=== PATIENT | male | born 1945 | race Caucasian/White ===

== ENCOUNTER 2023-09-24 17:24 | Emergency (ER) | payer MEDICARE, SELFPAY ==
[2023-09-24] VITALS (9 sets, daily range): BP systolic 139–190; BP diastolic 67–137
--- NOTE | 2023-09-24 18:20 | ED.GENMED ---
History of Present Illness
General
Chief Complaint: Heart Rate Problem
Source: patient
Exam Limitations: none
Time Seen by Provider: 09/24/23 18:03
Travel History
Have you had any contact with someone who has COVID-19?: No
Do you have any symptoms of coronavirus? Fever > 100 degrees, chills, cough, shortness of breath, sore throat, loss of taste or smell, muscle aches, or headache?: No
History of Present Illness
History of Present Illness:
This is a 78 year old male that comes in with c/o irregular heart beat. States that he went to [facility] to get pre-op clearance for Cataract surgery next month. States that they found that his heart rate was irregular and they told him to come
to the ER. Patients girlfriend states that he is to be on Amlodipine but he has not taken this for a long time. States that he was given this from [facility]. Denies any fever, chills, chest pain, SOB, abd pain, nausea, vomiting, diarrhea,
headache, dizziness, urinary burning.
Past History
Past History
ED Past Medical History: None; Negative Asthma, HTN, Hypercholesterolemia, IDDM or NIDDM
ED Past Surgical History: None
Social History
Tobacco: Non-smoker
Alcohol: None
Personal: Other (Seperated)
Living: with family
Review of Systems
Review of Systems
All Other Systems: ROS reviewed and negative except as documented in HPI and ROS
Constitutional: Reports no symptoms; Denies fever or chills
EENT: Reports no symptoms
Respiratory: Reports no symptoms; Denies cough or trouble breathing
Cardiac: Reports other (Irregular heart beat); Denies chest pain
ABD/GI: Reports no symptoms; Denies abdominal pain, nausea, vomiting or diarrhea
: Reports urgency; Denies dysuria or frequency
Musculoskeletal: Reports no symptoms
Skin: Reports no symptoms
Neurological: Reports no symptoms; Denies dizzy or headache
Psychiatric: Reports no symptoms
Phy Exam
General Physical Exam
General Presentation: no apparent distress
General age: appears stated age
General Skin: warm and dry
General Habitus: elderly
General Mental: alert
General Hydration: appears well hydrated
ENT Exam
ENT Exam: TM's normal, pharynx normal and neck supple
Eye Exam
Eye Exam: EOMI
Cardiovascular Exam
Cardiovascular Exam: no edema, normal peripheral pulses and irregularly irregular (PVC's)
Pulmonary Exam
Pulmonary Exam: lungs clear, no respiratory distress, no rales, chest non tender, no crackles, no rhonchi, no wheezing and no cough
Gastrointestinal Exam
Gastrointestinal Exam: normal bowel sounds, non tender, soft, no organomegaly, no pulsatile mass and non distended
Musculoskeletal Exam
Musculoskeletal Exam: full ROM and no edema
Skin Exam
Skin Exam: normal color, warm/dry, no rash and no petechia
Psychiatric Exam
Psychiatric Exam: normal mood/affect
Course
Orders/Labs/Results
Orders:
Orders
09/24/23 17:30
Electrocardiogram (*1) Urgent
Reason for Study: Atrial Fibrillation
EKG- Treatment ONCE
09/24/23 17:55
Complete Blood Count/With Diff Urgent
Comprehensive Metabolic Panel Urgent
TSH Reflex To Free T4 Urgent
09/24/23 18:19
HydrALAZINE [Apresoline] 5 mg IV NOW STA
09/24/23 20:13
Metoprolol Xl [Toprol Xl] 25 mg PO NOW STA
Abnormal Lab Results
09/24/23
17:55
RBC 4.54 L 10^6/uL
(4.70-6.10)
MCH 31.9 H pg
(27.0-31.0)
BUN 28 H mg/dl
(9-20)
Glucose 103 H mg/dl
(70-99)
09/24/23 17:55
09/24/23 17:55
Dehydration. Glucose nonfasting. TSH normal at 1.26
Vital Signs
Initial and Last Documented VS:
Initial Vital Signs
Temp Pulse Resp BP Pulse Ox
98.3 F 71 18 190/137 95
09/24/23 17:29 09/24/23 17:29 09/24/23 17:29 09/24/23 17:29 09/24/23 17:29
Last Documented Vital Signs
Temp Pulse Resp BP Pulse Ox
98.3 F 61 19 139/67 98
09/24/23 17:29 09/24/23 19:15 09/24/23 19:15 09/24/23 19:00 09/24/23 19:15
MDM/Problems Addressed
Differential Diagnosis Includes:
PVC's, PAC's,
MDM/Problems Addressed:
This is a 78 year old male that comes in from [facility] with c/o irregular heart beat. States that he went there for Pro-op clearance and they found that his heart was irregular. States that they told him he was in atrial fib.
Will check labs and medicate for his hypertension. Explained to patient that he is not in Atrial fib but is having PVC's. Patient states that he drinks a big mug of coffee daily. Explained that this is a stimulant and can cause this extra beats to
happen more frequently.
Spoke with the Appellate Court Clerk. Will place patient on Metroprolol 25mg daily. Patient to follow up with the Appellate Court Clerk in the office for further evaluation. Patient to return with any chest pain, or any other conerns.
Chronic conditions affecting care:
NA
Acute Exacerbation and/or Progression of Chronic Illness:
NA
*Pulse Oximetry
Patient hypoxic: no
*EKG
Interpreted by ED Provider?: Yes
Heart Rate: 70
Rate: normal
Rhythm: PVC's and sinus arrhythmia
[place]: left axis deviation
QRS Pattern: normal QRS
Ischemia: no ischemia (Checked by Dr. Horn)
*[place]er Interpretation
Rate: normal
Heart Rate: 75
Rhythm: sinus and PVC's
*Critical Care Note
Total Time (30-74mins, 75-104mins- exclusive of procedures): Not Applicable
ED Attending Note
-
Portions of this chart may have been created with voice recognition software.� Occasional wrong word or��sound alike� substitutions may have occurred due to the inherent limitations of voice recognition software.
Discharge Plan
Departure
Patient Disposition: Home (Routine Discharge)
Date of Disposition: 09/24/23
Time of Disposition: 20:40
Patient with high blood pressure during this ER visit?: Yes
Condition: Good
Covid-19: Not Applicable
Discharge Problem:
Multifocal PVCs, PAC (premature atrial contraction), Irregular heart beat
Instructions: Palpitations (DC), BLOOD PRESSURE
Prescriptions:
New
metoprolol succinate 25 mg tablet extended release 24 hr
25 mg PO DAILY Qty: 30 0RF
Referrals:
Chavo Martin MD [Active] - Follow up in 2-3 days
Activity Restrictions/Additional Instructions:
As discussed, your blood work shows dehydration. You have been given IV fluids here. Please try and decrease your caffeine intake as this will cause you to have increased PVC's. Please follow up with the Appellate Court Clerk in the office in the next few
days. You have been given a prescription for Metoprolol 25mg daily. This will help with BP control and to help with the extra beats. Please increase your water intake to 8-8oz glasses daily. IF YOU HAVE ANY CHEST PAIN, OR YOU HAVE ANY OTHER CONCERNS
PLEASE RETURN TO THE EMERGENCY ROOM.
Interventions
Interventions:
*Risk Screen - Suicide Last Done: 09/24/23 17:26
*General Assessment Last Done: 09/24/23 17:26
*Neglect/Abuse Screening Last Done: 09/24/23 17:26
ED- Fall Risk Assessment Last Done: 09/24/23 18:08
*ED COVID-19 Vaccine History Last Done: 09/24/23 17:26
ED- Cardiac Assessment Last Done: 09/24/23 18:08
ED- Pulmonary Assessment Last Done: 09/24/23 18:08
[2023-09-24 18:27] LABS: % Basophils 1.1 % (0-2); % Eosinophils 1.4 % (0-6); % Immature Granulocytes 0.2 % (0-0.5); % Lymphocytes 25.2 % (20.5-51.1); % Neutrophils 63.1 % (42.2-75.2); Absolute Basophils 0.1 10^3/uL (0-0.2); Absolute Eosinophils 0.1 10^3/uL (0-0.7); Absolute Lymphocytes 1.4 10^3/uL (1.2-3.4); Absolute Monocytes 0.5 10^3/uL (0.1-0.6); Absolute Neutrophils 3.6 10^3/uL (1.4-6.5); Hematocrit 40.8 % (39.0-52.0); Hemoglobin 14.5 g/dL (13.0-18.0); Mean Corp Hgb Conc. 35.5 g/dL (33.0-37.0); Mean Corpuscular Hgb 31.9 pg (27.0-31.0); Mean Corpuscular Volume 89.9 fL (80.0-94.0); Mean Platelet Volume 9.7 fL (7.4-10.4); Nucleated Red Blood Cells % 0 % (-); Platelet Count 206 10^3/uL (130-400); Red Blood Cell Count 4.54 10^6/uL (4.70-6.10); Red Cell Dist. Width 12.2 % (11.5-14.5); White Blood Cell Count 5.7 10^3/uL (4.8-10.8)
[2023-09-24] MEDS: APRESOLINE 5 MG IV (18:28)
[2023-09-24 18:37] LABS: ALT (SGPT) 22 U/L (0-50); AST (SGOT) 27 U/L (17-59); Albumin 4.1 g/dl (3.5-5.0); Alkaline Phosphatase 69 U/L (38-126); Blood Urea Nitrogen 28 mg/dl (9-20); Calcium 9.8 mg/dl (8.4-10.2); Carbon Dioxide 24 mmol/L (22-30); Chloride 105 mmol/L (98-107); Glucose 103 mg/dl (70-99); Potassium 4.2 mmol/L (3.5-5.1); Sodium 138 mmol/L (135-145); Total Bilirubin 0.7 mg/dl (0.2-1.3); Total Protein 6.7 g/dl (6.3-8.2); eGFR > 60.00
[2023-09-24 19:07] LABS: TSH Reflex To Free T4 1.26 uIU/ml (0.47-4.68)
[2023-09-24] MEDS: TOPROL XL 25 MG PO (20:35)
== END 2023-09-24 21:09 | disposition home or self-care (01) ==
LOC: EMR 17:24
PROVIDERS: EMERGENCY PHYSICIAN Emergency Medicine
DX: I49.3 Ventricular premature depolarization (principal); I49.1 Atrial premature depolarization; I49.9 Cardiac arrhythmia, unspecified; R03.0 Elevated blood-pressure reading, without diagnosis of hypertension
CPT/HCPCS: 99284; 96374; 80053; 84443; 85025; 93005

== ENCOUNTER → 2023-10-07 15:10 | Outpatient (REF) | payer MEDICARE, SELFPAY | LOC: HWRAD 15:10 | PROVIDERS: ATTENDING PHYSICIAN Internal Medicine Cardiovascular Disease; FAMILY PHYSICIAN Family Medicine | DX: F80.9 Developmental disorder of speech and language, unspecified (principal) | CPT/HCPCS: 70450 ==

== ENCOUNTER → 2023-10-09 12:30 | Outpatient (REF) | payer MEDICARE, SELFPAY | LOC: RCS 12:30 | PROVIDERS: ATTENDING PHYSICIAN Internal Medicine Cardiovascular Disease | DX: I49.3 Ventricular premature depolarization (principal); I10 Essential (primary) hypertension | CPT/HCPCS: 93306 ==

== ENCOUNTER → 2023-10-15 11:02 | Outpatient (REF) | payer MEDICARE, SELFPAY | LOC: DHCBC/DCA 11:02 | PROVIDERS: ATTENDING PHYSICIAN Internal Medicine Cardiovascular Disease | DX: I49.3 Ventricular premature depolarization (principal); R94.31 Abnormal electrocardiogram [ECG] [EKG] | CPT/HCPCS: 78452; 93017; A9500 ==

== ENCOUNTER → 2023-11-24 12:49 | Outpatient (REF) | payer MEDICARE, SELFPAY ==
[2023-11-24 14:09] LABS: % Basophils 1.3 % (0-2); % Eosinophils 1.6 % (0-6); % Immature Granulocytes 0.3 % (0-0.5); % Lymphocytes 24.8 % (20.5-51.1); % Monocytes 6.9 % (1.7-9.3); % Neutrophils 65.1 % (42.2-75.2); Absolute Basophils 0.1 10^3/uL (0-0.2); Absolute Eosinophils 0.1 10^3/uL (0-0.7); Absolute Lymphocytes 1.6 10^3/uL (1.2-3.4); Absolute Monocytes 0.4 10^3/uL (0.1-0.6); Absolute Neutrophils 4.1 10^3/uL (1.4-6.5); Hematocrit 41.8 % (39.0-52.0); Hemoglobin 14.4 g/dL (13.0-18.0); Mean Corp Hgb Conc. 34.4 g/dL (33.0-37.0); Mean Corpuscular Hgb 32.1 pg (27.0-31.0); Mean Corpuscular Volume 93.3 fL (80.0-94.0); Mean Platelet Volume 9.9 fL (7.4-10.4); Nucleated Red Blood Cells % 0 % (-); Platelet Count 215 10^3/uL (130-400); Red Blood Cell Count 4.48 10^6/uL (4.70-6.10); Red Cell Dist. Width 12.6 % (11.5-14.5); White Blood Cell Count 6.3 10^3/uL (4.8-10.8)
[2023-11-24 14:39] LABS: ALT (SGPT) 18 U/L (0-50); AST (SGOT) 26 U/L (17-59); Albumin 4.6 g/dl (3.5-5.0); Alkaline Phosphatase 68 U/L (38-126); Blood Urea Nitrogen 26 mg/dl (9-20); Calcium 10.2 mg/dl (8.4-10.2); Carbon Dioxide 24 mmol/L (22-30); Chloride 106 mmol/L (98-107); Glucose 90 mg/dl (70-99); HDL Cholesterol 74 mg/dl; LDL Cholesterol, Calculated 121 mg/dl; Potassium 4.5 mmol/L (3.5-5.1); Sodium 137 mmol/L (135-145); Total Bilirubin 0.7 mg/dl (0.2-1.3); Total Cholesterol 211 mg/dl (50-199); Total Protein 7.2 g/dl (6.3-8.2); Triglyceride 82 mg/dl (10-149); Very Low Density Lipoprotein 16 mg/dl (0-30); eGFR > 60.00
[2023-11-24 14:55] LABS: Vitamin D, 25-OH*** 55.1 ng/mL (30-80)
[2023-11-24 15:10] LABS: PSA, Total - Screen 7.45 ng/ml (0.0-4.0)
== END ==
LOC: RAD 12:49
PROVIDERS: ATTENDING PHYSICIAN Internal Medicine Cardiovascular Disease; FAMILY PHYSICIAN Family Medicine
DX: R09.89 Other specified symptoms and signs involving the circulatory and respiratory systems (principal); Z00.00 Encounter for general adult medical examination without abnormal findings; Z79.899 Other long term (current) drug therapy; I49.3 Ventricular premature depolarization; Z12.5 Encounter for screening for malignant neoplasm of prostate
CPT/HCPCS: 36415; 76770; 80053; 80061; 82306; 84443; 85025; G0103

== ENCOUNTER 2024-04-20 19:12 | Emergency (ER) | payer MEDICARE, SELFPAY ==
[2024-04-20 19:21] VITALS: BP 130/92
[2024-04-20 19:50] LABS: % Basophils 0.4 % (0-2); % Immature Granulocytes 0.4 % (0-0.5); % Monocytes 4.6 % (1.7-9.3); % Neutrophils 89.6 % (42.2-75.2); Absolute Basophils 0.1 10^3/uL (0-0.2); Absolute Immature Granulocytes 0.1 10^3/uL (0-0.05); Absolute Lymphocytes 0.8 10^3/uL (1.2-3.4); Absolute Monocytes 0.7 10^3/uL (0.1-0.6); Absolute Neutrophils 13.5 10^3/uL (1.4-6.5); Hematocrit 40.7 % (39.0-52.0); Hemoglobin 14.8 g/dL (13.0-18.0); Mean Corp Hgb Conc. 36.4 g/dL (33.0-37.0); Mean Corpuscular Hgb 31.4 pg (27.0-31.0); Mean Corpuscular Volume 86.4 fL (80.0-94.0); Mean Platelet Volume 9.5 fL (7.4-10.4); Nucleated Red Blood Cells % 0 % (-); Platelet Count 219 10^3/uL (130-400); Red Blood Cell Count 4.71 10^6/uL (4.70-6.10); White Blood Cell Count 15.1 10^3/uL (4.8-10.8)
[2024-04-20 20:33] LABS: ALT (SGPT) 24 U/L (0-50); AST (SGOT) 28 U/L (17-59); Albumin 4.9 g/dl (3.5-5.0); Alkaline Phosphatase 85 U/L (38-126); Blood Urea Nitrogen 27 mg/dl (9-20); Calcium 9.9 mg/dl (8.4-10.2); Carbon Dioxide 16 mmol/L (22-30); Chloride 103 mmol/L (98-107); Glucose 182 mg/dl (70-99); Potassium 4.1 mmol/L (3.5-5.1); Sodium 139 mmol/L (135-145); Total Bilirubin 0.8 mg/dl (0.2-1.3); Total Protein 7.4 g/dl (6.3-8.2); eGFR 47.36
[2024-04-20 20:39] VITALS: BMI 27.6
[2024-04-20 20:43] LABS: Lipase 66 U/L (23-300)
[2024-04-20 21:00] VITALS: BP 158/90
--- NOTE | 2024-04-20 21:04 | ED.GENMED ---
History of Present Illness
General
Chief Complaint: Abdominal Pain
Source: patient
Exam Limitations: none
Time Seen by Provider: 04/20/24 20:38
Nursing documentation reviewed up to this point in time: agreed with
History of Present Illness
History of Present Illness:
Patient is a 70-year-old male with history hypertension presenting to the emergency department with acute onset right lower quadrant abdominal pain. Patient states that today around 1 PM he was sitting when he noticed pain in his right lower
abdomen Patient states the pain was sharp and severe, although intermittent. He denies any radiation of pain to his back or his groin. He also reports associated nausea and 1 episode of vomiting while he was at urgent care. Patient denies any
diarrhea or constipation. He denies any dysuria or hematuria. Patient denies any fever or chills.
Patient states that while he was waiting in the waiting with the emergency department pain was pretty severe. Although he does state that he just went to the bathroom and urinated and now seems that his pain has improved. He did not notice any
stone passage at that time.
Patient does have a history of kidney stones for which symptoms seemed similar.
Past History
Past History
ED Past Medical History: None; Negative Asthma, HTN, Hypercholesterolemia, IDDM or NIDDM
ED Past Surgical History: None
Social History
Tobacco: Non-smoker
Alcohol: None
Personal: Other (Seperated)
Living: with family
Review of Systems
Review of Systems
Allergies reviewed?: Yes
All Other Systems: ROS reviewed and negative except as documented in HPI and ROS
Phy Exam
Physical Exam
Physical Exam:
Vitals: Patient's vital signs are stable. Afebrile
General: Patient is well appearing, no acute distress. Nontoxic appearing
Skin: Warm and dry, no rashes or lesions
Head: Normocephalic, atraumatic
Eyes: Sclera nonicteric. EOMs intact. No nystagmus.
Throat: Protecting airway
Neck: Normal ROM, no cervical spine tenderness, no meningismus
Cardiac: Regular rate and rhythm, no murmurs.
Pulm: Normal respiratory effort, no wheezes, rales, rhonchi heard on exam.
Abdomen: Abdomen soft. Very mild abdominal tenderness in right mid abdomen without rebound tenderness or guarding. No CVA tenderness.
Extremities: No evidence of cyanosis or edema. Great distal pulses
Neuro: Grossly intact.
Psychiatric: Normal affect.
Course
Orders/Labs/Results
Orders:
Orders
04/20/24 19:42
Complete Blood Count/With Diff Urgent
Comprehensive Metabolic Panel Urgent
Lipase Urgent
04/20/24 21:02
0.9% Sodium Chloride 1000 ml [Nss] 1,000 ml IV BOLUS
04/20/24 21:12
Urinalysis Reflex To Culture Urgent
Date Specimen was Collected: 04/20/24
Time Specimen was Collected: 21:10
Urine Microscopic Reflex Cult Urgent
Urine Culture Urgent
LUZ Source: U
Specimen Description:
Date Specimen was Collected: 04/20/24
Time Specimen was Collected: 21:10
04/20/24 21:41
Abdomen/Pelvis wo Contrast CT [CT Abd/pelvis Wo Iv Cont] Urgent
Comment:
Reason For Exam: R lower abdominal pain, +hematuria
Abnormal Lab Results
04/20/24 04/20/24
19:42 21:12
WBC 15.1 H 10^3/uL
(4.8-10.8)
MCH 31.4 H pg
(27.0-31.0)
Abs Immat Gran (auto) 0.1 H 10^3/uL
(0-0.05)
Absolute Neuts (auto) 13.5 H 10^3/uL
(1.4-6.5)
Absolute Lymphs (auto) 0.8 L 10^3/uL
(1.2-3.4)
Absolute Monos (auto) 0.7 H 10^3/uL
(0.1-0.6)
Neutrophils % 89.6 H %
(42.2-75.2)
Lymphocytes % 5.0 L %
(20.5-51.1)
Carbon Dioxide 16 L mmol/L
(22-30)
BUN 27 H mg/dl
(9-20)
Creatinine 1.5 H mg/dL
(0.7-1.3)
Glucose 182 H mg/dl
(70-99)
Urine Ketones 2+ A
(Negative)
Ur Occult Blood Reflex 4+ A
(Negative)
Urine Nitrite (Reflex) Positive A
(Negative)
Urine Bilirubin 1+ A
(Negative)
Leukocyte Esterase Rfl 1+ A
(Negative)
Urine RBC >100 A /HPF
(0-2)
Urine WBC (Reflex) 11-15 A /HPF
(0-5)
Urine Bacteria (Reflex) Few A
(Negative)
Urine Glucose Trace A
(Negative)
Urine Albumin (Reflex) 3+ A
(Neg - Trace)
04/20/24 19:42
04/20/24 19:42
Vital Signs
Initial and Last Documented VS:
Initial Vital Signs
Temp Pulse Resp BP Pulse Ox
98.7 F 59 16 130/92 98
04/20/24 19:21 04/20/24 19:21 04/20/24 19:21 04/20/24 19:21 04/20/24 19:21
Last Documented Vital Signs
Temp Pulse Resp BP Pulse Ox
98.7 F 72 18 162/90 98
04/20/24 19:21 04/20/24 23:12 04/20/24 23:12 04/20/24 23:12 09/18/24 23:12
MDM/Problems Addressed
Differential Diagnosis Includes:
Not limited to: Kidney stone, UTI, pyelonephritis, appendicitis, muscle strain, zoster
MDM/Problems Addressed:
70-year-old male reporting with acute onset right lower abdominal pain which is since resolved by my evaluation. Remaining symptoms after urinating once being brought to emergency department room. Did have nausea and episode of vomiting earlier
today. No fever or chills or urinary symptoms. Mildly hypertensive, otherwise vital signs stable on arrival. Physical exam as above. By my evaluation�patient is a no distress abdomen soft. Mild. No rebound tenderness or guarding. No CVA
tenderness. Patient has no evidence of overlying rash on abdomen/back to suggest zoster. No overlying ecchymoses. Story somewhat consistent with possibly recently passed kidney stone. Labs were initiated in triage which do show a leukocytosis
of 15.1. Findings of mild renal insufficiency noted. Patient very well-appearing. Will give liter of IV fluids. Patient no longer in any discomfort�declines any analgesia at this time. Will check urine sample. Given high suspicion for recently
passed kidney stone�will obtain noncontrast CT abdomen/pelvis. Much lower suspicion for acute surgical abdomen including appendicitis, diverticulitis given benign abdominal exam.
Chronic conditions affecting care:
History of kidney stone, hypertension, hypertension
Acute Exacerbation and/or Progression of Chronic Illness:
Acutely hypertensive
*Radiology
Radiology exam reviewed: preliminary read by ED provider (Right perinephric stranding and hydronephrosis) and radiology read reviewed
*Pulse Oximetry
Patient hypoxic: no
*EKG
Interpreted by ED Provider?: NA
*Decontaminator Interpretation
Rate: Decontaminator- N/A
*Critical Care Note
Total Time (30-74mins, 75-104mins- exclusive of procedures): Not Applicable
Patient Management
Discussion with other providers: Machine Specialist (Urology - Dr. Goss)
Update Note
Update Note:
Update: Urine analysis results reviewed. Positive for blood. Also findings of possible infection considering positive for nitrate, 1+ leukocyte esterase, 11�15 WBC. Although�patient denies any urinary infectious symptoms at this time. Urine
culture will be sent. CT abdomen/pelvis reviewed. No obstructing calculi noted�although there are multiple stones noted within the urinary bladder. There are findings of right hydronephrosis and severe right perinephric edema suggesting likely
recently passed kidney stone. No other acute abnormalities noted. Did discuss case with urology� Dr. Goss. He recommends against antibiotics at this time given patient is asymptomatic and urine culture will be sent. Will hold on antibiotics.
Patient will be discharged with urology follow-up in 2-3 weeks. Prescription given for follow-up ultrasound renal/bladder to have performed prior to urology follow-up. Did advise patient to have lab work repeated with primary care in a week to
ensure renal function improving. Return precautions discussed especially regarding signs of worsening infection. Patient remains very well-appearing, in no apparent distress. He has remained asymptomatic since my initial evaluation�requiring no
pain management emergency department. Patient stable for discharge with urology/PCP follow-up
ED Attending Note
-
Portions of this chart may have been created with voice recognition software.� Occasional wrong word or��sound alike� substitutions may have occurred due to the inherent limitations of voice recognition software.
Discharge Plan
Departure
Patient Disposition: Home (Routine Discharge)
Date of Disposition: 04/20/24
Time of Disposition: 23:28
Patient with high blood pressure during this ER visit?: Yes
Condition: Good
Covid-19: Not Applicable
Discharge Problem:
Abdominal pain, RLQ, Hydronephrosis, right
Instructions: Kidney Stones (DC), BLOOD PRESSURE
Prescriptions:
No Action
metoprolol succinate 25 mg tablet extended release 24 hr
25 mg PO DAILY Qty: 30 0RF
Referrals:
Jeremiah Ashby DO [Family Provider] - Follow up in 1 week
Wil Goss MD [Active] - Follow up in 10 days (2-3 weeks)
Activity Restrictions/Additional Instructions:
RETURN TO THE EMERGENCY DEPARTMENT WITH ANY FEVERS, CHILLS, SEVERE ABDOMINAL PAIN, INTRACTABLE NAUSEA/VOMITING, SIGNS OF DEHYDRATION, SIGNIFICANT WEAKNESS/FATIGUE, OR ANY OTHER CONCERNS
-It is likely that you passed a kidney stone today.
-It does appear that your kidney function is slightly high on your lab work today. You should have these labs repeated in 1 week with your primary care doctor.
-As discussed�you should follow-up with a urologist in 2 to 3 weeks. The contact information for Dr. Goss has been given to you above. You should have the ultrasound of your kidneys/bladder performed prior to your urology appointment. You were
sent home with a prescription for this.
-It is important to stay well-hydrated.
-Follow-up with primary care in a few days for repeat blood work and for further evaluation.
Monitor your symptoms closely and return to the emergency department with any acute worsening/new symptoms or any signs of infection
Interventions
Interventions:
*Risk Screen - Suicide Last Done: 04/20/24 19:21
*General Assessment Last Done: 04/20/24 20:40
*Neglect/Abuse Screening Last Done: 04/20/24 20:40
ED- Fall Risk Assessment Last Done: 04/20/24 20:40
*Nursing Disposition Last Done: 04/20/24 23:55
EO-Rseljd-Abylqsahaz Assessment Last Done: 04/20/24 20:41
Discharge Date and Time
Discharge Date/Time: 04/20/24 23:57
Print Language: AU[place]
[2024-04-20] MEDS: NSS 1000 IV (21:11)
[2024-04-20 21:20] LABS: Urine Albumin 3+ (Neg - Trace); Urine Bilirubin 1+ (Negative); Urine Character Very Cloudy (Clear); Urine Color Brown; Urine Glucose Trace (Negative); Urine Ketone 2+ (Negative); Urine Leukocyte 1+ (Negative); Urine Nitrite Positive (Negative); Urine Occult Blood 4+ (Negative); Urine Urobilinogen 1+ (Neg - 1+)
[2024-04-20 21:34] LABS: Urine Squamous Cell 0-2 /LPF (Few)
[2024-04-20 21:40] LABS: Urine Calcium Oxalate Crystals Present; Urine Red Blood Cell >100 /HPF (0-2)
[2024-04-20 21:41] LABS: Urine Bacteria Few (Negative)
[2024-04-20 22:00] VITALS: BP 181/94
[2024-04-20 23:12] VITALS: BP 162/90
== END 2024-04-20 23:57 | disposition home or self-care (01) ==
LOC: EMR 19:12
PROVIDERS: Emergency Medicine; Physician Assistant; EMERGENCY PHYSICIAN Emergency Medicine; FAMILY PHYSICIAN Family Medicine
DX: R10.31 Right lower quadrant pain (principal); R11.2 Nausea with vomiting, unspecified; N13.2 Hydronephrosis with renal and ureteral calculous obstruction; I10 Essential (primary) hypertension; Z87.442 Personal history of urinary calculi
CPT/HCPCS: 99284; 96360; 51701; 74176; 80053; 81003; 81015; 83690; 85025; 87077; 87086; 87186

== ENCOUNTER 2024-04-21 20:31 | Inpatient (IN) | payer MEDICARE, SELFPAY ==
[2024-04-21 18:18] VITALS: BP 176/103
[2024-04-21 18:45] LABS: % Basophils 0.3 % (0-2); % Eosinophils 0.1 % (0-6); % Immature Granulocytes 0.4 % (0-0.5); % Lymphocytes 6.7 % (20.5-51.1); % Monocytes 6.5 % (1.7-9.3); Absolute Basophils 0.1 10^3/uL (0-0.2); Absolute Immature Granulocytes 0.1 10^3/uL (0-0.05); Absolute Lymphocytes 1.1 10^3/uL (1.2-3.4); Absolute Neutrophils 13.7 10^3/uL (1.4-6.5); Hematocrit 42.2 % (39.0-52.0); Hemoglobin 14.7 g/dL (13.0-18.0); Mean Corp Hgb Conc. 34.8 g/dL (33.0-37.0); Mean Corpuscular Volume 91.9 fL (80.0-94.0); Mean Platelet Volume 9.6 fL (7.4-10.4); Nucleated Red Blood Cells % 0 % (-); Platelet Count 174 10^3/uL (130-400); Red Blood Cell Count 4.59 10^6/uL (4.70-6.10); Red Cell Dist. Width 12.5 % (11.5-14.5); White Blood Cell Count 15.9 10^3/uL (4.8-10.8)
[2024-04-21 18:57] LABS: Lactic Acid 1.3 mmol/L (0.7-2.0)
[2024-04-21 19:05] LABS: ALT (SGPT) 22 U/L (0-50); AST (SGOT) 26 U/L (17-59); Albumin 4.7 g/dl (3.5-5.0); Alkaline Phosphatase 68 U/L (38-126); Blood Urea Nitrogen 25 mg/dl (9-20); Calcium 9.5 mg/dl (8.4-10.2); Carbon Dioxide 18 mmol/L (22-30); Chloride 103 mmol/L (98-107); Glucose 120 mg/dl (70-99); Potassium 4.2 mmol/L (3.5-5.1); Sodium 138 mmol/L (135-145); Total Bilirubin 1.4 mg/dl (0.2-1.3); Total Protein 7.4 g/dl (6.3-8.2); eGFR 56.23
[2024-04-21 19:07] VITALS: BP 159/74
[2024-04-21] MEDS: TYLENOL 1000 MG PO (19:21)
--- NOTE | 2024-04-21 19:27 | ED.GENMED ---
History of Present Illness
<Sky Recio PA-C - Last Filed: 04/21/24 20:20>
General
Chief Complaint: Change in Mental Status
Source: patient, records and spouse
Time Seen by Provider: 04/21/24 19:17
History of Present Illness
History of Present Illness:
78 year old male with PMH of HTN, seen here in this ED yesterday and diagnosed with suspected recently passed kidney stone and questionable UTI, presenting back to the ED with who states patient has had fever with Tmax 102.5 and AMS today.
concerned for UTI. She notes that they were supposed to have follow up renal US but that this wasnt going to happen until next week. Patient endoses fever, rigors and generally feeling unwell. 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 Patient otherwise denies
nausea/vomiting, back/flank pain, chest pain, SOB, or any other concerns
Past History
<Sky Recio PA-C - Last Filed: 04/21/24 20:20>
Past History
ED Past Medical History: HTN; Negative Asthma, Hypercholesterolemia, IDDM or NIDDM
ED Past Surgical History: None
Social History
Tobacco: Non-smoker
Alcohol: None
Drug: None
Personal: Other (Seperated)
Living: with family
Review of Systems
<Sky Recio PA-C - Last Filed: 04/21/24 20:20>
Review of Systems
All Other Systems: ROS reviewed and negative except as documented in HPI and ROS
Phy Exam
<Sky Recio PA-C - Last Filed: 04/21/24 20:20>
Physical Exam
Physical Exam:
GENERAL: Alert , in no apparent distress, rigorous, ill appearing
HEAD: NCAT
EYE: clear conjunctiva
NECK: Supple
ENT: mmm.
CARDIAC: Regular rate and rhythm .
LUNGS: Clear breath sounds bilaterally, no acute respiratory distress, no wheezes/rales/rhonchi
ABDOMEN: Soft, without focal tenderness, no r/g, no cvat
NEUROLOGICAL: Alert and oriented x 3
SKIN: Warm and dry, skin intact.
MUSCULOSKELETAL: well perfused.
PSYCH: Normal and appropriate interaction.
Scores
<Sky Recio PA-C - Last Filed: 04/21/24 20:20>
Heart Failure Risk
Heart Failure Risk Score: Not Applicable
Heart Score for Chest Pain Patients
STEMI patient?: Not applicable
Withdrawal Assessment of Alcohol
Withdrawal Assessment Completed?: Not applicable
Course
<Sky Recio PA-C - Last Filed: 04/21/24 20:20>
Orders/Labs/Results
Orders:
Orders
04/21/24 Breakfast
Regular
At Your Request: Full Participation
04/21/24 18:21
Electrocardiogram (*1) Urgent
Reason for Study: Other
Other Reason for Exam: Possible Sepsis
EKG- Treatment ONCE
04/21/24 18:37
Complete Blood Count/With Diff Urgent
Comprehensive Metabolic Panel Urgent
Lactic Acid Q4H
Comment: ON ICE, CANCEL 2ND ORDER IF FIRST LACTIC ACID LEVEL <2
04/21/24 19:18
Acetaminophen [Tylenol] 1,000 mg .ROUTE .STK-MED ONE
04/21/24 19:21
Acetaminophen [Tylenol] 1,000 mg PO NOW STA
04/21/24 19:23
0.9% Sodium Chloride 1000 ml [Nss] 2,800 ml IV NOW STA
Acetaminophen [Tylenol] 1,000 mg PO NOW STA
Cefepime HCl [Maxipime] 2,000 mg IV NOW STA
04/21/24 19:51
Admit/Transfer Patient As Directed
Co-Sign Provider:
Level of Care: Inpatient admission
Assign to:: IMU- Intermediate Care
Physician / Group: Jake
Diagnosis: Sepsis, Pyelonephritis
Reason for Hospitalization: Sepsis, Pyelonephritis
Expected length of stay greater than two midnights?: Yes
ELOS- Estimated Length of Stay in days: 3
I certify the patient meets the requirements for IP care: Yes
PRN Pain Medication Management As Directed
May give lesser potent ordered pain med per pt: Yes
preference::
Protocol:: Medication orders for pain may be administered in a
manner that supports deferring to patient preference
when the pt is:
- Requesting an ordered lesser potent pain medication.
Least to most potent pain medications are defined
as: acetaminophen < NSAID < tramadol < opioids
(morphine, oxycodone, hydromorphone).
- Requesting a lesser dose of the same medication IF
ORDERED.
- Requesting a less intrusive route of administration
if both routes are prescribed by the provider (PO <
IV).
04/21/24 19:53
Code Status As Directed
Resuscitation Status: Full Code
04/21/24 19:56
Blood Culture Routine
LUZ Source: Blood/Venous
Specimen Description:
Blood Culture Urgent
LUZ Source: Blood/Venous
Specimen Description:
04/21/24 20:21
Gentamicin Sulfate [Gentamicin] 190 mg 0.9% Sodium Chloride [Nss] 50 ml IV NOW
04/21/24 20:55
Urinalysis Reflex To Culture Urgent
Date Specimen was Collected: 04/21/24
Time Specimen was Collected: 20:53
04/21/24 21:22
Acetaminophen [Tylenol] 650 mg PO Q4HPRN PRN
Cefepime HCl [Maxipime] 2,000 mg IV Q8H
Lactated Ringers [Lr] 1,000 ml IV 200 mls/hr
Ondansetron Injectable [Zofran] 4 mg IV Q6HPRN PRN
04/21/24 21:22
Activity As Directed
Activity Level: Ambulate
With Assistance
Bladder Scan As Directed
Follow Bladder Retention/Intermittent Cath Algorithm?: Yes
PRN if no void in __ hours: 6
Frequency: Per Retention Algorithm
If Bladder Scan Result >: 400
then:: Straight cath
EKG with chest pain [ECG as needed] As Directed
ECG as needed for:: Chest Pain
I/O [Intake/ Output] As Directed
Frequency: Per unit guidelines
Orthostatic Vital Signs As Directed
Orthostatic VS Frequency: BID
Pneumatic Compression Sleeves As Directed
Type: Knee high
Straight Cath As Directed
Frequency: Per Retention Algorithm
Additional Instructions: straight cath as needed per acute urinary retention algorithm for 24 hrs
Additional Instructions: for bladder scan greater than 400 mL
Vital Signs As Directed
Frequency: Per unit guidelines
Weight As Directed
Frequency: Daily
Oxygen Therapy [O2 Therapy] [RESP] Routine
Titrate/Wean O2 to maintain O2 sat greater than (%): 94
Ot Eval And Treat Routine
PT Consult [Pt Eval And Treat] Routine
Activity Level: Ambulate
With Assistance
DX Deep Vein Thrombosis Video Routine
04/21/24 22:00
Latanoprost [Xalatan Ophthalmic Solution] See Dose Instructions BOTH EYES HS
04/21/24 22:19
Lactic Acid Q4H
Comment: ON ICE, CANCEL 2ND ORDER IF FIRST LACTIC ACID LEVEL <2
04/22/24 06:00
Basic Metabolic Panel IN AM
Complete Blood Count/No Diff IN AM
04/22/24 18:00
Enoxaparin Sodium [Lovenox] 40 mg SC QPM
Abnormal Lab Results
04/21/24
18:37
WBC 15.9 H 10^3/uL
(4.8-10.8)
RBC 4.59 L 10^6/uL
(4.70-6.10)
MCH 32.0 H pg
(27.0-31.0)
Abs Immat Gran (auto) 0.1 H 10^3/uL
(0-0.05)
Absolute Neuts (auto) 13.7 H 10^3/uL
(1.4-6.5)
Absolute Lymphs (auto) 1.1 L 10^3/uL
(1.2-3.4)
Absolute Monos (auto) 1.0 H 10^3/uL
(0.1-0.6)
Neutrophils % 86.0 H %
(42.2-75.2)
Lymphocytes % 6.7 L %
(20.5-51.1)
Carbon Dioxide 18 L mmol/L
(22-30)
BUN 25 H mg/dl
(9-20)
Glucose 120 H mg/dl
(70-99)
Total Bilirubin 1.4 H mg/dl
(0.2-1.3)
04/21/24 18:37
04/21/24 18:37
Vital Signs
Initial and Last Documented VS:
Initial Vital Signs
Temp Pulse Resp BP Pulse Ox
97.9 F 94 16 176/103 98
04/21/24 18:18 04/21/24 18:18 04/21/24 18:18 04/21/24 18:18 04/21/24 18:18
Last Documented Vital Signs
Temp Pulse Resp BP Pulse Ox
99.3 F 87 25 128/93 96
04/21/24 21:36 04/21/24 22:00 04/21/24 22:00 04/21/24 22:00 04/21/24 22:36
Aníballt;Julio Gardiner DO - Last Filed: 04/21/24 23:38>
Orders/Labs/Results
Orders:
Orders
04/21/24 Breakfast
Regular
At Your Request: Full Participation
04/21/24 18:21
Electrocardiogram (*1) Urgent
Reason for Study: Other
Other Reason for Exam: Possible Sepsis
EKG- Treatment ONCE
04/21/24 18:37
Complete Blood Count/With Diff Urgent
Comprehensive Metabolic Panel Urgent
Lactic Acid Q4H
Comment: ON ICE, CANCEL 2ND ORDER IF FIRST LACTIC ACID LEVEL <2
04/21/24 19:18
Acetaminophen [Tylenol] 1,000 mg .ROUTE .STK-MED ONE
04/21/24 19:21
Acetaminophen [Tylenol] 1,000 mg PO NOW STA
04/21/24 19:23
0.9% Sodium Chloride 1000 ml [Nss] 2,800 ml IV NOW STA
Acetaminophen [Tylenol] 1,000 mg PO NOW STA
Cefepime HCl [Maxipime] 2,000 mg IV NOW STA
04/21/24 19:51
Admit/Transfer Patient As Directed
Co-Sign Provider:
Level of Care: Inpatient admission
Assign to:: IMU- Intermediate Care
Physician / Group: Jake
Diagnosis: Sepsis, Pyelonephritis
Reason for Hospitalization: Sepsis, Pyelonephritis
Expected length of stay greater than two midnights?: Yes
ELOS- Estimated Length of Stay in days: 3
I certify the patient meets the requirements for IP care: Yes
PRN Pain Medication Management As Directed
May give lesser potent ordered pain med per pt: Yes
preference::
Protocol:: Medication orders for pain may be administered in a
manner that supports deferring to patient preference
when the pt is:
- Requesting an ordered lesser potent pain medication.
Least to most potent pain medications are defined
as: acetaminophen < NSAID < tramadol < opioids
(morphine, oxycodone, hydromorphone).
- Requesting a lesser dose of the same medication IF
ORDERED.
- Requesting a less intrusive route of administration
if both routes are prescribed by the provider (PO <
IV).
04/21/24 19:53
Code Status As Directed
Resuscitation Status: Full Code
04/21/24 19:56
Blood Culture Routine
LUZ Source: Blood/Venous
Specimen Description:
Blood Culture Urgent
LUZ Source: Blood/Venous
Specimen Description:
04/21/24 20:21
Gentamicin Sulfate [Gentamicin] 190 mg 0.9% Sodium Chloride [Nss] 50 ml IV NOW
04/21/24 20:55
Urinalysis Reflex To Culture Urgent
Date Specimen was Collected: 04/21/24
Time Specimen was Collected: 20:53
04/21/24 21:22
Acetaminophen [Tylenol] 650 mg PO Q4HPRN PRN
Cefepime HCl [Maxipime] 2,000 mg IV Q8H
Lactated Ringers [Lr] 1,000 ml IV 200 mls/hr
Ondansetron Injectable [Zofran] 4 mg IV Q6HPRN PRN
04/21/24 21:22
Activity As Directed
Activity Level: Ambulate
With Assistance
Bladder Scan As Directed
Follow Bladder Retention/Intermittent Cath Algorithm?: Yes
PRN if no void in __ hours: 6
Frequency: Per Retention Algorithm
If Bladder Scan Result >: 400
then:: Straight cath
EKG with chest pain [ECG as needed] As Directed
ECG as needed for:: Chest Pain
I/O [Intake/ Output] As Directed
Frequency: Per unit guidelines
Orthostatic Vital Signs As Directed
Orthostatic VS Frequency: BID
Pneumatic Compression Sleeves As Directed
Type: Knee high
Straight Cath As Directed
Frequency: Per Retention Algorithm
Additional Instructions: straight cath as needed per acute urinary retention algorithm for 24 hrs
Additional Instructions: for bladder scan greater than 400 mL
Vital Signs As Directed
Frequency: Per unit guidelines
Weight As Directed
Frequency: Daily
Oxygen Therapy [O2 Therapy] [RESP] Routine
Titrate/Wean O2 to maintain O2 sat greater than (%): 94
Ot Eval And Treat Routine
PT Consult [Pt Eval And Treat] Routine
Activity Level: Ambulate
With Assistance
DX Deep Vein Thrombosis Video Routine
04/21/24 22:00
Latanoprost [Xalatan Ophthalmic Solution] See Dose Instructions BOTH EYES HS
04/21/24 22:19
Lactic Acid Q4H
Comment: ON ICE, CANCEL 2ND ORDER IF FIRST LACTIC ACID LEVEL <2
04/22/24 06:00
Basic Metabolic Panel IN AM
Complete Blood Count/No Diff IN AM
04/22/24 18:00
Enoxaparin Sodium [Lovenox] 40 mg SC QPM
Abnormal Lab Results
04/21/24
18:37
WBC 15.9 H 10^3/uL
(4.8-10.8)
RBC 4.59 L 10^6/uL
(4.70-6.10)
MCH 32.0 H pg
(27.0-31.0)
Abs Immat Gran (auto) 0.1 H 10^3/uL
(0-0.05)
Absolute Neuts (auto) 13.7 H 10^3/uL
(1.4-6.5)
Absolute Lymphs (auto) 1.1 L 10^3/uL
(1.2-3.4)
Absolute Monos (auto) 1.0 H 10^3/uL
(0.1-0.6)
Neutrophils % 86.0 H %
(42.2-75.2)
Lymphocytes % 6.7 L %
(20.5-51.1)
Carbon Dioxide 18 L mmol/L
(22-30)
BUN 25 H mg/dl
(9-20)
Glucose 120 H mg/dl
(70-99)
Total Bilirubin 1.4 H mg/dl
(0.2-1.3)
04/21/24 18:37
04/21/24 18:37
Vital Signs
Initial and Last Documented VS:
Initial Vital Signs
Temp Pulse Resp BP Pulse Ox
97.9 F 94 16 176/103 98
04/21/24 18:18 04/21/24 18:18 04/21/24 18:18 04/21/24 18:18 04/21/24 18:18
Last Documented Vital Signs
Temp Pulse Resp BP Pulse Ox
99.3 F 87 25 128/93 96
04/21/24 21:36 04/21/24 22:00 04/21/24 22:00 04/21/24 22:00 04/21/24 22:36
<Sky Recio PA-C - Last Filed: 04/21/24 20:20>
MDM/Problems Addressed
Differential Diagnosis Includes:
UTI, sepsis, bacteremia, had CT scan yesterday which showed recently passed stone
MDM/Problems Addressed:
78 year old male presenting back to the ER for evaluation of fever and AMS, seen here yesterday and diagnosed with recently passed kidney stone with ? UTI but was not treated with abx at urology recommendation per chart review. Patient now febrile
with AMS per . Fever 104.3 here. Otherwise hemodynamically stable. Labs initiated. WBC 15.9. BUN 25. Sepsis work up initiated. Maxipime and gentamycin ordered for abx covereage of complicated UTI. sepsis fluid bundle ordered. No indications for
pressors at this time. Will notify hosptitalist team
<Sky Recio PA-C - Last Filed: 04/21/24 20:20>
*Pulse Oximetry
Patient hypoxic: no
*Catering Service Manager Interpretation
Rate: normal
Rhythm: sinus
*Critical Care Note
Total Time (30-74mins, 75-104mins- exclusive of procedures): Not Applicable
Data Reviewed
Review of Other/Old Records Reveals: Labs, Records and Radiology Studies
Source: patient, records and family
<Sky Recio PA-C - Last Filed: 04/21/24 20:20>
Patient Management
Discussion with other providers: Hospitalist
Escalation/DeEscalation of care consider admission/obs:
Hospitalist accepts for continued evaluation and treatment
ED Attending Note
<Sky Recio PA-C - Last Filed: 04/21/24 20:20>
-
Portions of this chart may have been created with voice recognition software.� Occasional wrong word or��sound alike� substitutions may have occurred due to the inherent limitations of voice recognition software.
<Julio Gardiner DO - Last Filed: 04/21/24 23:38>
ED Attending Note
Patient seen and examined by attending physician: Yes
I performed the substantive portion of visit, reviewed & personally made and approve the management plan that is documented in note by myself or KARI.: Yes
ED Attending Note:
Patient is a 78-year-old male who presents to the emergency department with increased confusion and mild lethargy as well as a temperature of 1-2.5. Patient was seen in the emergency department yesterday for suspected kidney stone and was found to
have mild hydronephrosis as well as edema of the right kidney. However there was no stone in the ureter. Patient does appear to be dry but is cooperative. Patient does take time to answer questions. Patient does not have a temperature at this
time. Patient's white count is elevated. Does appear that the patient has a urinary tract infection. I suspect the patient has pyelonephritis. Patient will be admitted and given intravenous antibiotics.
Discharge Plan
Departure
Patient Disposition: Admit
Date of Disposition: 04/21/24
Time of Disposition: :27
Presentation/result/management discussed w/ accepting MD/DO: Hospitalist
Discharge Problem:
Acute UTI, Kidney stone
Interventions
Interventions:
*Risk Screen - Suicide Last Done: 04/21/24 18:18
*General Assessment Last Done: 04/21/24 18:18
*Neglect/Abuse Screening Last Done: 04/21/24 18:18
ED- Fall Risk Assessment Last Done: 04/21/24 20:46
*ED COVID-19 Vaccine History Last Done: 04/21/24 21:44
*Nursing Disposition Last Done: 04/21/24 21:36
ED- Neurological Assessment Last Done: 04/21/24 20:46
ED-Skin Assessment Last Done: 04/21/24 20:46
ED Swallowing Screen Last Done: 04/21/24 20:46
Discharge Date and Time
Discharge Date/Time: 04/21/24 21:37
[2024-04-21] MEDS: NSS 2800 ML IV (19:38)
[2024-04-21] MEDS: MAXIPIME 2000 MG IV (19:43)
--- NOTE | 2024-04-21 19:58 | HPS.HSE ---
Family Physician
-
Family Physician:
Chief Complaint
-
Fever, Confusion
History of Present Illness
Patient is a 78y M with PMH significant for hypertension who presents to ED complaining of fever and confusion. History obtained primarily from his at the bedside. Patient started to complain of R sided abdominal pain yesterday. He was
seen initially at Urgent Care and then referred to the ED for further evaluation. Pain was right sided and lasted for several hours. He took stool softeners and ate prunes at home as he thought the pain might be due to constipation. He had N/V x
1 episode at Urgent Care. He broke into a cold sweat, but had no fever yesterday. He was seen here in the ED and had CT scan showing severe R perinephric edema and intra-renal stones. No obstruction / ureteral stone was seen. Patient was
discharged for outpatient follow-up with Urology.
Today, patient woke in the afternoon and seemed more confused than usual according to his . He did not complain of abdominal pain, flank pain, N/V or urinary complaints today. His confusion persisted and checked his temp at home which was
102. They returned to the ED for further evaluation and here his temp is 104.3.
Medical History
Past Medical History
Past Medical History: Reports Other
Additional Past Medical History:
Hypertension
Glaucoma
Past Surgical History: Reports None
Social History
Tobacco: Non-smoker
Alcohol: Occasional
Drug: None
Personal:
Living: With Family
Family History
Family History: Other (Mother: DM-I Father: COPD)
Allergies / Home Medications
Allergies reflects when Allergies were last updated in [email or web address].
Home Medications with original date entered in [email or web address]
Allergy/Medication List:
Allergies
Allergy/AdvReac Type Severity Reaction Status Date / Time
No Known Allergies Allergy Verified 04/21/24 18:21
Home Medications
metoprolol succinate 25 mg tablet,extended release 24 hr 25 mg PO DAILY Cardiac issues #30 tabs 09/24/23
Multiple Supplements 1 dose PO .1-2X DAILY 04/21/24
amlodipine 5 mg tablet 5 mg PO DAILY 04/21/24
latanoprost 0.005 % eye drops 1 drp BOTH EYES HS 04/21/24
Review of Systems
-
History Source: Patient and Family
A 12 point ROS was completed and negative except as noted: Yes
Constitutional: Reports Fever, Fatigue and Chills
EENT: Denies Sore Throat
Respiratory: Denies Cough or Trouble Breathing
Cardiac: Denies Chest Pain or Palpitations
Abdomen/GI: Reports Abdominal Pain, Nausea and Vomiting; Denies Diarrhea, Constipated, Bloody Stools or Black Stools
: Denies Dysuria, Frequency, Flank Pain or Bleeding
Musculoskeletal: Denies Joint Pain or Edema
Neurological: Denies Dizzy or Headache
Psych: Denies Depression or Anxiety
Physical Exam
Vital Signs
Vital Signs
Temp Pulse Resp BP Pulse Ox
104.3 F H 82 19 159/74 98
04/21/24 19:03 04/21/24 19:07 04/21/24 19:07 04/21/24 19:07 04/21/24 19:07
Physical Exam
General: Other (78y M not in acute distress.)
HEENT: Moist mucous membranes and PERRLA
Respiratory: Clear; No Wheezes, Rales or Rhonchi
Cardiac: S1/S2 and Regular Rhythm; No Murmur
GI: Soft, Non Tender, Non Distended and Normal Bowel Sounds
Musculoskeletal: No Clubbing, No Cyanosis and No Edema
Neuro: AO x 3
Psych: Other (Confused / disoriented. Awake and alert and follows commands appropriately.)
Laboratory Results
-
04/21/24 18:37
04/21/24 18:37
Laboratory Results
Lactic Acid 1.3 mmol/L (0.7-2.0) 04/21/24 18:37
Total Bilirubin 1.4 mg/dl (0.2-1.3) H 04/21/24 18:37
AST 26 U/L (17-59) 04/21/24 18:37
ALT 22 U/L (0-50) 04/21/24 18:37
Alkaline Phosphatase 68 U/L (38-126) 04/21/24 18:37
Impression/Plan
-
A/P: Patient is a 78y M with PMH significant for hypertension who presents to ED for evaluation of fever and confusion.
Right Pyelonephritis
Sepsis secondary to the above
Acute TME secondary to the above
- Admit for further evaluation and treatment.
- Patient presents with fever, leukocytosis, acute TME and apparent urinary source of infection.
- IV abx with cefepime pending culture data (urine culture sent during ED visit 04/20).
- Aggressive IVF support.
- Follow for clinical improvement.
- Blood cultures also sent this evening.
- Lactate was surprisingly normal on initial assessment - will repeat x 1.
- Follow for any new symptoms / GI or complaints.
Anion Gap Metabolic Acidosis
- Anion gap = 17 on initial labs. Lactate normal as noted above.
- ? etiology of elevated anion gap.
- Follow labs / lytes for improvement or changes.
Benign Hypertension
- Stable Hemodynamically stable at present despite sepsis.
- Hold BP medications acutely.
Sinus Arrhythmia / PACs
- Not in A-Fib. Sinus arrhythmia and PACs.
- Prior cardiac evaluation earlier this year was unremarkable.
DVT Prophylaxis: Lovenox
Code Status: Full
[2024-04-21 20:00] VITALS: BP 150/61
[2024-04-21] MEDS: GENTAMICIN 54.75 MG IV (20:53)
[2024-04-21 21:00] VITALS: BP 130/83
[2024-04-21 21:09] LABS: Urine Albumin 1+ (Neg - Trace); Urine Bilirubin Negative (Negative); Urine Glucose Negative (Negative); Urine Ketone 1+ (Negative); Urine Leukocyte 2+ (Negative); Urine Nitrite Negative (Negative); Urine Occult Blood Trace (Negative); Urine Specific Gravity 1.015 (<1.030); Urine Urobilinogen Negative (Neg - 1+)
[2024-04-21 21:15] LABS: Urine Character Clear (Clear); Urine Color Yellow
[2024-04-21 21:21] LABS: Urine White Cell 26-30 /HPF (0-5)
[2024-04-21 21:22] LABS: Urine Bacteria Few (Negative)
[2024-04-21 21:34] VITALS: BP 143/70
[2024-04-21 21:36] VITALS: BMI 28.5
[2024-04-21 22:00] VITALS: BP 128/93
[2024-04-21] MEDS: XALATAN OPHTHALMIC SOLUTION 1 DROP BOTH EYES (22:16)
[2024-04-21] MEDS: LR 1000 IV (22:16)
[2024-04-21] MEDS: TYLENOL 650 MG PO (22:27)
[2024-04-22] VITALS (15 sets, daily range): BP systolic 96–166; BP diastolic 59–136; PULSE 82; O2SAT 98; BMI 28.8
--- NOTE | 2024-04-22 | PTCARENOTE ---
Pt admitted to IMU. AAOx1, anxious, forgetful and confused. Bed alarm in place. Assessment done and charted. Sinus arrhythmia w/ PAC and PVCs. Traces of BL LE edema. Lung sounds are diminished w/ a occasional dry cough. SaO2 96% RA. Pt has a #25
Condom cath producing green urine. Call mora with reach and will continue w/ tx plan.
[2024-04-22] MEDS: LR 1000 IV (03:30)
[2024-04-22 05:55] LABS: Hematocrit 34.9 % (39.0-52.0); Hemoglobin 12.3 g/dL (13.0-18.0); Mean Corp Hgb Conc. 35.2 g/dL (33.0-37.0); Mean Corpuscular Hgb 31.2 pg (27.0-31.0); Mean Corpuscular Volume 88.6 fL (80.0-94.0); Mean Platelet Volume 10.1 fL (7.4-10.4); Platelet Count 146 10^3/uL (130-400); Red Blood Cell Count 3.94 10^6/uL (4.70-6.10); Red Cell Dist. Width 12.6 % (11.5-14.5); White Blood Cell Count 16.5 10^3/uL (4.8-10.8)
[2024-04-22 06:14] LABS: Blood Urea Nitrogen 20 mg/dl (9-20); Calcium 8.4 mg/dl (8.4-10.2); Carbon Dioxide 13 mmol/L (22-30); Chloride 109 mmol/L (98-107); Estimated Creatinine Clearance 56 ml/min; Glucose 106 mg/dl (70-99); Potassium 3.8 mmol/L (3.5-5.1); Sodium 138 mmol/L (135-145); eGFR > 60.00
[2024-04-22 06:59] LABS: Hepatitis C Antibody Negative (Negative)
--- NOTE | 2024-04-22 07:26 | W.PN.HOSP.TC ---
Addendum entered and electronically signed by Jonn Casper DO 04/22/24 14:57:
Revisited patient to assess his confusion. Still remains confused with word finding difficulty. He is able to tell me his name but cannot tell me where he is. Is able to follow commands for the most part except he easily gets misdirected.
Spoke with patient, nurse and significant other Tara. Tara states that he has had word finding difficulty for several months but this is significantly worse than baseline. She states he has no history of stroke or mini stroke. He has been
taking a lot of herbal supplements lately, which likely has turned his urine a bluish color. The supplements include methylene blue and other chemicals.
Will get brain MRI today. Consult neurology. Rule out stroke. If brain MRI negative then suspect cognitive issues are related to encephalopathy due to sepsis.
Original Note:
Today's Communication/Plan
-
Continue antibiotics
Await cultures
Resume antihypertensives
Monitor in IMU
Assessment / Plan
Assessment / Plan
Gen-awake, alert, not oriented, NAD
HEENT-NC, AT, anicteric, clear oral mm
Neck-supple
CV-reg, no M, +S1/S2
Lungs-clear B/L
Abd-soft, NT, ND
Ext-no edema
Musculoskeletal-no cyanosis, clubbing
Skin-warm and dry
Neuro-grossly non-focal
Psych-calm, cooperative
Acute TME -due to sepsis, pyelonephritis. Anticipate improvement with resolution of infection.
Sepsis due to right-sided pyelonephritis -due to nephrolithiasis. Recently passed kidney stone. Hemodynamically stable, hypertensive. Continue IV antibiotics pending culture results.
Bilateral nephrolithiasis -CT scan done on 04/20 confirms 3 cm stellate calculus in the bladder with several additional small calculi measuring between 1 and 3 mm. No obstructing renal or ureteral calculi noted. There is mild right hydronephrosis
and severe right perinephric edema probably due to recently passed stone. I spoke with urology (Dr. Adler) regarding this case, recommendation is to monitor with antibiotic therapy, IV fluids. No intervention needed urologically. Close
outpatient follow-up after discharge.
High anion gap metabolic acidosis -differential diagnosis includes sepsis, starvation ketosis, etc. Bicarbonate 13 this morning, anion gap 16. Sodium bicarb and IV fluids ordered.
Essential hypertension -blood pressure elevated. Resume amlodipine, metoprolol.
Hyperglycemia - rule out DM2. Check hemoglobin A1c.
Full code
Anticipated Discharge: > 48 hours
Subjective/Interval History
-
Date of Service: April 22, 2024
Patient seen and examined. Looks comfortable but is confused. Cannot tell me his name or where he is. Denies pain.
Objective Data
-
Labs:
Laboratory Results
04/22/24
05:30
WBC 16.5 H
Hgb 12.3 L
Hct 34.9 L
Plt Count 146
Sodium 138
Potassium 3.8
Chloride 109 H
Carbon Dioxide 13 L*
BUN 20
Creatinine 1.2
Glucose 106 H
Calcium 8.4
Vital Signs:
Vital Signs
Temp Pulse Resp BP Pulse Ox
99.3 F 78 30 149/107 97
04/22/24 06:00 04/22/24 06:00 04/22/24 06:00 04/22/24 06:00 04/22/24 06:00
I&O
04/21/24 04/22/24 04/23/24
06:59 06:59 06:59
Intake Total 2030 / 2029
Output Total 800 / 800
Balance 1230 / 1230
Review of Systems
-
History Source: Patient
All other systems: Reviewed and negative
[2024-04-22] MEDS: SODIUM BICARBONATE 1150 MEQ IV ×3 (07:51→23:54)
[2024-04-22] MEDS: MAXIPIME 1000 MG IV (07:51)
[2024-04-22] MEDS: STERILE WATER FOR INJECTION 10 ML IV (07:52)
[2024-04-22] MEDS: TOPROL XL 25 MG PO (08:50)
[2024-04-22] MEDS: NORVASC 5 MG PO (08:50)
[2024-04-22 09:03] LABS: Glycohemoglobin (HgbA1c) 5.2 % (4.0-5.6)
--- NOTE | 2024-04-22 10:44 | PTCARENOTE ---
Addendum entered by Rhianna Grullon RN 04/22/24 11:00:
Updated Dr. Casper. Also updated sig other, Tara,via telephone
Original Note:
Rec'd pt this AM. Pt continues to have some aphasia/word finding issues. Able to communicate effectively, however his needs. OOB x2 assist to BSC. urine remains green. Ate 100% of breakfast, resting in bed at this time. vital signs stable. bed alarm
in place.
[2024-04-22] MEDS: TYLENOL 650 MG PO ×3 (12:18→22:58)
[2024-04-22] MEDS: AMPICILLIN 108 MG IV ×3 (12:36→23:00)
--- NOTE | 2024-04-22 12:58 | CM ---
Patient with Dx Sepsis, pyelonephritis, TME. Febrile today. Room air. Receiving IVF w/ Bicarb, IV Abx.
PT Eval; expressive aphasia/word-finding difficulty; min assist of 2 for transfers, not ambulated, recommend likely rehab.
OT; mod assist of 2 grooming, dependent toileting/LE self care, recommend skilled rehab.
Met with patient, who goes by the name Cesar, and his SO Tara;
the patient was alert, smiling occasionally, exhibited expressive aphasia. Tara states patient had some word finding difficulty at baseline.
The patient resides with Tara in a 2 story townhouse with 2 HOMER.
He has been independent in ADLs and ambulation.
He was active playing with their puppies/walking the dogs, driving shopping.
No DME, prior VN or SNF.
PCP - Jeremiah Ashby
Pharmacy - [facility]
Discussed possible need for short term SNF for rehab. Provided SNF list and MC ratings local facilities. Tara says they are familiar with [facility], [facility] and [facility] SNFs. She would like to wait and see if patient's mobility
improves in the next few days, before deciding on SNF. She relays stairs at home may be an issue for d/c to home unless mobility improves.
Plan follow patient's mobility.
Plan follow up with patient/SO about SNF vs HH.
[2024-04-22] MEDS: ASPIR LOW (ENTERIC COATED) 81 MG PO (15:13)
--- NOTE | 2024-04-22 15:37 | CON.ID ---
Consultation
-
Date/Time Consultation Requested: 04/22/2024 1137
Date/Time Consultation Performed: 04/22/2024 1522
Requesting Provider: Dr. Casper
Performing Provider: Dr. Weiss
Reason for Consultation: Sepsis
Chief Complaint / Past History
History of Present Illness
Reynold Shore is a 78-year-old man being evaluated at the request of Dr. Casper in regards to leukocytosis and suspected sepsis. History is obtained from chart review, along with patient interview, although the patient was found to have
significant word finding and ability and to provide little in the way of additional history.
The patient initially presented to the emergency room here at [facility] on 04/20/2024 after the he developed the acute onset of right lower quadrant abdominal discomfort. He noted at that time that earlier in the day he was sitting when he
noticed pain in the right lower abdomen which she described as sharp and severe but intermittent. He denied any radiation of that pain to his flank or groin. He admitted to nausea and an episode of vomiting while he was being evaluated at an
urgent care center. No history of diarrhea or constipation. While waiting in the ER he urinated and noted that there was improvement in his pain but he did not notice any stone passage. Workup in the ER included urinalysis which was positive for
blood. The patient was discharged to home. No antibiotics were prescribed.
The patient presents back to the emergency room last evening when he was found to have a fever to 102.5 degrees. According to ER notes the patient appeared less cognitively intact during the day and his significant other was concern for possible
UTI. The patient was started on empiric antibiotics (cefepime, gentamicin). Urine culture from his presentation on 04/20 is now positive for Enterococcus, and Infectious Diseases is asked to comment upon further antimicrobial therapy. At present,
the patient denies any pain. He admits to some history of dysuria, although cannot quantify when and to what degree.
Past History
Past Medical History: HTN and Other (Nephrolithiasis)
Past Surgical History: None
Allergy History:
No Known Allergies Allergy (Verified 04/21/24 18:21)
Medications Reviewed: Yes
Current Antibiotics:
Ampicillin 2 g IV every 6 hours
Social History
Tobacco: Non-Smoker
Alcohol: None
Drug: None
Personal: Other ()
Living: With Family
Employment: Retired
Family History
Family History: Not Pertinent
Review of Systems
Vital Signs
Temp Pulse Resp BP Pulse Ox
98.8 F 80 33 156/74 96
04/22/24 14:30 04/22/24 12:13 04/22/24 12:13 04/22/24 12:13 04/22/24 10:00
Physical Exam
Physical Exam
Constitutional: No Acute Distress, Comfortable and Non-toxic
Eyes: No Conjunctival Hemorrhage and Sclera Anicteric
Oral: No Thrush and No Ulcers
Cardiovascular: S1/S2; Negative S3/S4
Pulmonary: Clear; Negative Wheezes, Rales or Rhonchi
Gastrointestinal: Soft, Non Tender, Non Distended, Normal Bowel Sounds, No Rebound and No Guarding
Extremities: Negative Edema, Cyanosis or Erythema
Neurological: Awake, Alert and Other (Word finding inability)
Psychological: Confused
Lab / Diagnostic Study Results
04/22/24 05:30
04/22/24 05:30
Abs Immat Gran (auto) 0.1 10^3/uL (0-0.05) H 04/21/24 18:37
Absolute Neuts (auto) 13.7 10^3/uL (1.4-6.5) H 04/21/24 18:37
Absolute Lymphs (auto) 1.1 10^3/uL (1.2-3.4) L 04/21/24 18:37
Absolute Monos (auto) 1.0 10^3/uL (0.1-0.6) H 04/21/24 18:37
Absolute Basos (auto) 0.1 10^3/uL (0-0.2) 04/21/24 18:37
Immature Gran % 0.4 % (0-0.5) 04/21/24 18:37
Neutrophils % 86.0 % (42.2-75.2) H 04/21/24 18:37
Lymphocytes % 6.7 % (20.5-51.1) L 04/21/24 18:37
Monocytes % 6.5 % (1.7-9.3) 04/21/24 18:37
Eosinophils % 0.1 % (0-6) 04/21/24 18:37
Basophils % 0.3 % (0-2) 04/21/24 18:37
Lactic Acid 1.0 mmol/L (0.7-2.0) 04/21/24 22:19
Microbiology Results
Micro:
04/21/24 20:55 Urine Culture - Pending
Urine
04/21/24 19:56 Blood Culture - Pending
Blood/Venous
04/21/24 19:56 Blood Culture - Pending
Blood/Venous
04/20/24 21:12
Urine >100k cfu/mL Enterococcus spp.
Imaging:
04/20/2024 CT abdomen/pelvis without contrast : No obstructing renal or ureteral calculi are demonstrated, however, there is mild right hydronephrosis and severe right perinephric edema which may be on the basis of the recently passed calculus as
there are calculi in the urinary bladder including a 3 cm stellate calculus as well as several additional small calculi measuring between 1 and 3 mm. There are bilateral nonobstructing renal calculi. There is cholelithiasis. There is 4 cm left
renal cyst. Please see full dictation for additional detail.
Assessment / Plan
Leukocytosis
Complicated urinary tract infection
Suspected right pyelonephritis
Encephalopathy; suspect TME
Hx HTN
Recommendations:
Continue with ampicillin for now. Dose is appropriate for current renal function.
Blood cultures have been obtained; will follow.
Await further culture data to guide antimicrobial selection/modification.
Patient for MRI of the brain to rule out acute CVA given encephalopathy and word finding inability
Monitor white count and temperature curve.
--- NOTE | 2024-04-22 16:15 | CON.NEURO4 ---
Consultation - Neurology 4
-
CONSULTING PHYSICIAN: Sami Lisa MD (Neurology)
REFERRING PHYSICIAN: Hospitalist
DICTATED BY: Sami Lisa MD
DATE/TIME OF REQUEST: 04/23/2024
DATE/TIME OF CONSULTATION: 04/23/2024
Reason for Consultation: Word finding issues
History of Present Illness:
This is a (78) year old right) handed (male who has presented to the hospital with (chief complaint)of confusion word finding issues and memory loss
He has a h/o hypertension who was admitted to ED complaining of fever and confusion. History obtained primarily from his at the bedside. Patient complained of R sided abdominal pain. He was seen initially at Urgent Care and then referred
to the ED for further evaluation. Pain was right sided and persisted for several hours.
He took stool softeners and ate prunes at home for constipation. He had N/V x 1 episode at Urgent Care. He broke into a cold sweat, but had no fever yesterday. He was seen here in the ED and had CT scan showing severe R perinephric edema and
intra-renal stones. No obstruction / ureteral stone was seen. Patient was discharged for outpatient follow-up with Urology.
Today, patient woke in the afternoon and seemed more confused than usual according to his significant other. He did not complain of abdominal pain, flank pain, N/V or urinary complaints today. His confusion persisted and checked his temp at
home which was 102. They returned to the ED for further evaluation and here his temp is 104.3.
He was placed on IV antibiotics and he is recovering
However his confusion persisted prompting neuro eval
At the time of my exam pat is confused with cranial nerve or motor deficits.
Difficulty standing and walking.
per SO at home he was able to climb up/down steps without restrictions.
Past Medical History: As above
Surgical History:
Family History:
Social History:
Allergies:
Home Medications:
Review of Symptoms:
Patient denies any fever, headache, chest pain, shortness of breath, GI or symptoms.
�Per the HPI.�All systems are reviewed negative except above.
�-
Vital Signs:
The patient has a Temp 37.1 C Pulse 79 Resp 24 BP 146/75 Pulse Ox 98
Physical Exam:
The patient is afebrile, heart sounds S1 and S2 are (regular , and chest is clear to auscultation bilaterally.
- If not clear, describe.
Neurologic Examination:
The patient is awake, confused and oriented x 3. (He is able to follow commands and answer questions appropriately. There is no aphasia or dysarthria.
On cranial nerve assessment, pupils are 3 mm bilateral, round and reactive to light and accommodation. Visual [place] are full. Extraocular movements are intact. Facial sensations are intact and bilaterally symmetrical, there is no facial asymmetry.
Hearing is intact bilaterally to normal conversation volume. Tongue palate and uvula are midline. Sternocleidomastoid strengths are full bilaterally. Motor strengths are 5/5 bilateral upper and lower extremities on medical research [place] scale.
Deep tendon reflexes are 2+ bilateral upper and lower extremities and Babinski is absent bilaterally.
Sensations of pain, touch, temperature and vibration are intact and bilaterally symmetrical.. Coordination is intact by finger to nose bilaterally.
Lab Results: Addendum
Neuro Imaging: CT head NPH. MRI: Diffuse cortical atrophy Severe right and moderate to severe left temporal lobe volume loss. Moderate volume loss in the frontal and parietal lobes. 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
FrontoTemporal Lobar Degeneration). Mild white matter leukoaraiosis in both cerebral hemispheres.
SEVERE LEFT MAXILLARY SINUSITIS.
Impression:
(Mr. RENETTA LUONG is a 78 year old M who has presented to the hospital with (symptoms/chief complaint) of cognitive impairment
Differentials for the patient's presentation include:
1. Normal Pressure Hydrocephalus
2. Metabolic encephalopathy
3. Frontotemporal Degeneration
Recommendations:
1. B12
2. Thyroid profile
3. Serum Nfl
4. Serum TDP-43
Discussed patient care with:
Allergies
-
Allergies
Allergy/AdvReac Type Severity Reaction Status Date / Time
No Known Allergies Allergy Verified 04/21/24 18:21
Vital Signs and Labs
-
Vital Signs and Labs:
Vital Signs
Temp Pulse Resp BP Pulse Ox
37.1 C 79 24 146/75 98
04/22/24 14:30 04/22/24 15:10 04/22/24 15:10 04/22/24 15:10 04/22/24 16:06
Lab Results
04/22/24 05:30
04/22/24 05:30
Sodium 138 mmol/L (135-145) 04/22/24 05:30
Potassium 3.8 mmol/L (3.5-5.1) 04/22/24 05:30
BUN 20 mg/dl (9-20) 04/22/24 05:30
Glucose 106 mg/dl (70-99) H 04/22/24 05:30
Calcium 8.4 mg/dl (8.4-10.2) 04/22/24 05:30
Medications
-
Active Medications
Generic Name Dose Route Start Last Admin
Trade Name Freq PRN Reason Stop Dose Admin
Acetaminophen 650 mg 04/21/24 21:22 04/22/24 12:18
Acetaminophen 325 Mg Tablet PO 05/19/24 21:21 650 mg
Q4HPRN PRN Administration
Mild Pain / Temp > 101
Amlodipine Besylate 5 mg 04/22/24 08:00 04/22/24 08:50
Amlodipine 5 Mg Tablet PO 05/20/24 07:59 5 mg
DAILY ALEX Administration
Aspirin 81 mg 04/23/24 08:00
Aspirin 81 Mg (Enteric Coated) Tablet PO 05/21/24 07:59
DAILY ALEX
Enoxaparin Sodium 40 mg 04/22/24 18:00
Enoxaparin Sodium 40 Mg/0.4 Ml Syringe SC 05/20/24 17:59
QPM ALEX
Sodium Bicarbonate 150 meq/ 1,150 mls @ 150 mls/hr 04/22/24 08:00 04/22/24 15:13
Dextrose IV 04/23/24 07:59 1,150 mls
.Q7H40M ALEX Administration
Ampicillin Sodium 2,000 mg/ 108 mls @ 108 mls/hr 04/22/24 12:00 04/22/24 12:36
Sodium Chloride IV 108 mls
Q6H ALEX Administration
Latanoprost 0 drop 04/21/24 22:00 04/21/24 22:16
Latanoprost 0.005% (Ophthalmic Solution) 2.5 Ml Bottle BOTH EYES 05/19/24 21:59 1 drop
HS ALEX Administration
Metoprolol Succinate 25 mg 04/22/24 08:00 04/22/24 08:50
Metoprolol 25 Mg Extended Release Tablet PO 05/20/24 07:59 25 mg
DAILY ALEX Administration
Ondansetron HCl 4 mg 04/21/24 21:22
Ondansetron 4 Mg/2 Ml Vial IV 05/19/24 21:21
Q6HPRN PRN
nausea and vomiting
Sodium Chloride 0 flush 04/21/24 22:00
Sodium Chloride 0.9% (Flush) Syringe IV 05/19/24 21:59
PER PROTOCOL ALEX
Home Medications
�Medication �Instructions �Recorded
metoprolol succinate 25 mg 25 mg PO DAILY Cardiac issues #30 09/24/23
tablet,extended release 24 hr tabs
Multiple Supplements 1 dose PO .1-2X DAILY Supplement 04/21/24
amlodipine 5 mg tablet 5 mg PO DAILY Blood Pressure 04/21/24
latanoprost 0.005 % eye drops 1 drp BOTH EYES HS Eye Condition 04/21/24
--- NOTE | 2024-04-22 16:16 | PTCARENOTE ---
Pt transported to brain MRI off monitor per direction by Dr. Casper.
[2024-04-22] MEDS: LOVENOX 40 MG SC (17:31)
[2024-04-22] MEDS: DESENEX/MITRAZOL/ZEASORB 1 APPLIC TOPICAL (20:23)
[2024-04-22] MEDS: XALATAN OPHTHALMIC SOLUTION 1 DROP BOTH EYES (21:05)
[2024-04-23] VITALS (13 sets, daily range): BP systolic 120–173; BP diastolic 63–104; BMI 29.1
[2024-04-23 00:17] LABS: Vitamin B12 310 pg/ml (239-931)
[2024-04-23 05:05] LABS: % Basophils 0.4 % (0-2); % Eosinophils 0.3 % (0-6); % Immature Granulocytes 0.6 % (0-0.5); % Lymphocytes 6.6 % (20.5-51.1); % Monocytes 8.1 % (1.7-9.3); Absolute Basophils 0.1 10^3/uL (0-0.2); Absolute Immature Granulocytes 0.1 10^3/uL (0-0.05); Absolute Lymphocytes 0.9 10^3/uL (1.2-3.4); Absolute Monocytes 1.1 10^3/uL (0.1-0.6); Absolute Neutrophils 11.3 10^3/uL (1.4-6.5); Hematocrit 35.9 % (39.0-52.0); Hemoglobin 12.8 g/dL (13.0-18.0); Mean Corp Hgb Conc. 35.7 g/dL (33.0-37.0); Mean Corpuscular Hgb 32.4 pg (27.0-31.0); Mean Corpuscular Volume 90.9 fL (80.0-94.0); Mean Platelet Volume 10.2 fL (7.4-10.4); Nucleated Red Blood Cells % 0 % (-); Platelet Count 124 10^3/uL (130-400); Red Blood Cell Count 3.95 10^6/uL (4.70-6.10); Red Cell Dist. Width 12.4 % (11.5-14.5); White Blood Cell Count 13.4 10^3/uL (4.8-10.8)
[2024-04-23 05:19] LABS: ALT (SGPT) 39 U/L (0-50); AST (SGOT) 64 U/L (17-59); Albumin 3.1 g/dl (3.5-5.0); Alkaline Phosphatase 62 U/L (38-126); Blood Urea Nitrogen 21 mg/dl (9-20); Carbon Dioxide 28 mmol/L (22-30); Chloride 101 mmol/L (98-107); Estimated Creatinine Clearance 51 ml/min; Glucose 118 mg/dl (70-99); Potassium 3.5 mmol/L (3.5-5.1); Sodium 138 mmol/L (135-145); Total Bilirubin 1.1 mg/dl (0.2-1.3); Total Protein 5.4 g/dl (6.3-8.2); eGFR 56.23
[2024-04-23] MEDS: AMPICILLIN 108 MG IV ×4 (05:37→23:36)
--- NOTE | 2024-04-23 06:24 | PTCARENOTE ---
Pt right lower arm was noted to be infiltrated after pt got up attempting to go to the bathroom. +3 edema. Ice packs applied and elevated.
--- NOTE | 2024-04-23 07:53 | W.PN.HOSP.TC ---
Addendum entered and electronically signed by Jonn Casper DO 04/23/24 14:55:
I updated Tara over the phone. We discussed the findings on the brain MRI and the need for outpatient neurocognitive assessment. All questions answered.
Anticipate potential SNF on discharge pending progress with PT.
Original Note:
Today's Communication/Plan
-
Continue antibiotics
Stop bicarbonate drip
Oral potassium chloride
Await cultures
PT/OT
Transfer to [facility]
Assessment / Plan
Assessment / Plan
Gen-awake, alert, not oriented, NAD
HEENT-NC, AT, anicteric, clear oral mm
Neck-supple
CV-reg, no M, +S1/S2
Lungs-clear B/L
Abd-soft, NT, ND
Ext-no edema
Musculoskeletal-no cyanosis, clubbing
Skin-warm and dry
Neuro-grossly non-focal
Psych-calm, cooperative
Acute TME -due to sepsis, pyelonephritis. Brain MRI shows severe right and moderate to severe left temporal volume loss, moderate volume loss in the frontal and parietal lobes. 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
frontotemporal lobar degeneration.
Strongly suspect he has underlying dementia that has not been diagnosed given findings on brain MRI. No stroke noted. Will need formal neurocognitive assessment after discharge.
Sepsis due to right-sided pyelonephritis -due to nephrolithiasis. Recently passed kidney stone. Hemodynamically stable, hypertensive. Blood cultures negative so far, urine culture shows Enterococcus species. Appreciate ID input. WBC count
starting to come down, Tmax 101.8 �F.
Bilateral nephrolithiasis -CT scan done on 04/20 confirms 3 cm stellate calculus in the bladder with several additional small calculi measuring between 1 and 3 mm. No obstructing renal or ureteral calculi noted. There is mild right hydronephrosis
and severe right perinephric edema probably due to recently passed stone. I spoke with urology (Dr. Adler) regarding this case, recommendation is to monitor with antibiotic therapy, IV fluids. No intervention needed urologically. Close
outpatient follow-up after discharge.
High anion gap metabolic acidosis -suspect related to sepsis, although lactic acid level normal. Acidosis resolved. Stop bicarbonate drip.
Essential hypertension -continue amlodipine, metoprolol.
Hyperglycemia - likely due to stress, sepsis. Hemoglobin A1c 5.2%.
Acute thrombocytopenia -124k, differential diagnosis includes infection, medications, etc. Highly doubt HIT. Would monitor for now.
Full code
Dispo -PT/OT recommending SNF on discharge.
Can transfer out of IMU today.
Anticipated Discharge: > 48 hours
Subjective/Interval History
-
Date of Service: April 23, 2024
Patient seen and examined. Remains confused. No distress. No complaints. Cannot tell me where he is. Is able to tell me his name.
Objective Data
-
Labs:
Laboratory Results
04/23/24
04:23
WBC 13.4 H
Hgb 12.8 L
Hct 35.9 L
Plt Count 124 L
Sodium 138
Potassium 3.5
Chloride 101
Carbon Dioxide 28
BUN 21 H
Creatinine 1.3
Glucose 118 H
Calcium 8.0 L
Total Bilirubin 1.1
AST 64 H
ALT 39
Alkaline Phosphatase 62
Vital Signs:
Vital Signs
Temp Pulse Resp BP Pulse Ox
98.7 F 77 25 148/74 94
04/23/24 03:18 04/23/24 06:00 04/23/24 06:00 04/23/24 06:00 04/23/24 04:00
I&O
04/22/24 04/23/24 04/24/24
06:59 06:59 06:59
Intake Total 2030 / 2029 2280 / 2280
Output Total 800 / 800 1750 / 1750
Balance 1230 / 1230 530 / 530
Review of Systems
-
Unable to obtain full review of systems at this time due to: Acuity
History Source: Patient
All other systems: Reviewed and negative
--- NOTE | 2024-04-23 08:00 | PTCARENOTE ---
Received pt from retail shift supervisor. Pt aaox1-2 (to self/place), when asked where he is, he appears to be thinking, but does not respond. When given options of places he is, he says he is in the hospital. Sinus arrhythmia on monitor, PACs and PVCs at
times. VSS. No c/o pain. Pt slow to respond during conversation, but mentation has improved from my assessment yesterday. NSS running @ 80 mL/hr. Pt resting in bed with call mora in reach.
[2024-04-23] MEDS: NSS 1000 IV (08:08)
[2024-04-23] MEDS: DESENEX/MITRAZOL/ZEASORB 1 APPLIC TOPICAL ×2 (08:08→23:25)
[2024-04-23] MEDS: TOPROL XL 25 MG PO (08:08)
[2024-04-23] MEDS: NORVASC 5 MG PO (08:08)
[2024-04-23] MEDS: KCL 40 MEQ PO (08:09)
[2024-04-23] MEDS: SODIUM BICARBONATE IV (08:10)
--- NOTE | 2024-04-23 11:04 | W.PN.ID1 ---
Date of Service
Date of Service: April 23, 2024
Today's Communication
Continue ampicillin
Assessment / Plan
Leukocytosis - trending down
Complicated urinary tract infection
Suspected right pyelonephritis
Encephalopathy; suspect TME
Hx HTN
Recommendations:
Continue with ampicillin (d2) pending cx data.
Blood cultures neg to date
Monitor white count and temperature curve.
MRI brain: severe neurodegenerative disease
Chief Complaint
-: UTI
Vital Signs / Physical Exam
Vital Signs
Vital Signs
Temp Pulse Resp BP Pulse Ox
99.8 F 74 26 156/96 95
04/23/24 07:05 04/23/24 10:00 04/23/24 10:00 04/23/24 10:00 04/23/24 10:20
Physical Exam
Pulmonary: Clear
Genito-Urinary: Horn and Clear Urine; Negative CVA Tenderness
Objective Data
Lab Data
Lab Results
04/23/24 04:23
04/23/24 04:23
Estimated Creat Clear 51 ml/min 04/23/24 04:23
Lactic Acid 1.0 mmol/L (0.7-2.0) 04/21/24 22:19
Total Bilirubin 1.1 mg/dl (0.2-1.3) 04/23/24 04:23
AST 64 U/L (17-59) H 04/23/24 04:23
ALT 39 U/L (0-50) 04/23/24 04:23
Alkaline Phosphatase 62 U/L (38-126) 04/23/24 04:23
Most recent labs reviewed.
Micro Results:
04/21/24 19:56 Blood Culture - Preliminary
Blood/Venous No Growth in 24 hours- Final report to follow
04/21/24 19:56 Blood Culture - Preliminary
Blood/Venous No Growth in 24 hours- Final report to follow
04/21/24 20:55 Urine Culture - Pending
Urine
Imaging:
04/20/2024 CT abdomen/pelvis without contrast : No obstructing renal or ureteral calculi are demonstrated, however, there is mild right hydronephrosis and severe right perinephric edema which may be on the basis of the recently passed calculus as
there are calculi in the urinary bladder including a 3 cm stellate calculus as well as several additional small calculi measuring between 1 and 3 mm. There are bilateral nonobstructing renal calculi. There is cholelithiasis. There is 4 cm left
renal cyst. Please see full dictation for additional detail.
[2024-04-23] MEDS: TYLENOL 650 MG PO ×2 (11:17→23:25)
--- NOTE | 2024-04-23 11:56 | PTCARENOTE ---
Pt downgraded to medsurg. Verbal report given to BOBBY Ferrer on 3W. Pt had a temp of 102.5 this am, PRN tylenol given (see MAR). Tara, his primary contact, called and I provided her updates on patient.
--- NOTE | 2024-04-23 13:14 | PTCARENOTE ---
Pt transferred via bed to room 338 bed 2. All belongings with patient.
[2024-04-23] MEDS: LOVENOX 40 MG SC (17:34)
[2024-04-23] MEDS: XALATAN OPHTHALMIC SOLUTION 1 DROP BOTH EYES (23:25)
[2024-04-24 00:27] VITALS: BP 172/83
[2024-04-24 01:00] VITALS: BP 160/74
[2024-04-24 06:00] VITALS: BMI 29.7
[2024-04-24] MEDS: AMPICILLIN 108 MG IV ×4 (06:15→23:58)
[2024-04-24 07:35] VITALS: BP 157/85
[2024-04-24] MEDS: TOPROL XL 25 MG PO (07:55)
[2024-04-24] MEDS: NORVASC 5 MG PO (07:55)
[2024-04-24] MEDS: TYLENOL 650 MG PO (07:56)
[2024-04-24] MEDS: DESENEX/MITRAZOL/ZEASORB 1 APPLIC TOPICAL (07:57)
[2024-04-24 08:57] LABS: % Basophils 0.5 % (0-2); % Immature Granulocytes 0.4 % (0-0.5); % Lymphocytes 9.5 % (20.5-51.1); % Monocytes 7.6 % (1.7-9.3); Absolute Basophils 0.1 10^3/uL (0-0.2); Absolute Eosinophils 0.1 10^3/uL (0-0.7); Absolute Monocytes 0.8 10^3/uL (0.1-0.6); Absolute Neutrophils 8.5 10^3/uL (1.4-6.5); Hematocrit 33.8 % (39.0-52.0); Hemoglobin 11.9 g/dL (13.0-18.0); Mean Corp Hgb Conc. 35.2 g/dL (33.0-37.0); Mean Corpuscular Hgb 31.1 pg (27.0-31.0); Mean Corpuscular Volume 88.3 fL (80.0-94.0); Nucleated Red Blood Cells % 0 % (-); Red Blood Cell Count 3.83 10^6/uL (4.70-6.10); Red Cell Dist. Width 12.6 % (11.5-14.5); White Blood Cell Count 10.5 10^3/uL (4.8-10.8)
[2024-04-24 09:16] LABS: ALT (SGPT) 63 U/L (0-50); AST (SGOT) 76 U/L (17-59); Alkaline Phosphatase 74 U/L (38-126); Blood Urea Nitrogen 20 mg/dl (9-20); Calcium 8.3 mg/dl (8.4-10.2); Carbon Dioxide 25 mmol/L (22-30); Chloride 104 mmol/L (98-107); Estimated Creatinine Clearance 61 ml/min; Glucose 106 mg/dl (70-99); Potassium 3.6 mmol/L (3.5-5.1); Sodium 138 mmol/L (135-145); Total Bilirubin 1.2 mg/dl (0.2-1.3); Total Protein 5.4 g/dl (6.3-8.2); eGFR > 60.00
[2024-04-24 09:35] LABS: Mean Platelet Volume 11.6 fL (7.4-10.4); Platelet Count 107 10^3/uL (130-400)
--- NOTE | 2024-04-24 11:09 | W.PN.HOSP.TC ---
Today's Communication/Plan
-
PT/OT
Continue antibiotics
Assessment / Plan
Assessment / Plan
Gen-awake, alert, not oriented, NAD
HEENT-NC, AT, anicteric, clear oral mm
Neck-supple
CV-reg, no M, +S1/S2
Lungs-clear B/L
Abd-soft, NT, ND
Ext-no edema
Musculoskeletal-no cyanosis, clubbing
Skin-warm and dry
Neuro-grossly non-focal
Psych-calm, cooperative
Acute TME -due to sepsis, pyelonephritis. Brain MRI shows severe right and moderate to severe left temporal volume loss, moderate volume loss in the frontal and parietal lobes. 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
frontotemporal lobar degeneration.
Strongly suspect he has underlying dementia that has not been diagnosed given findings on brain MRI. No stroke noted. Will need formal neurocognitive assessment after discharge. Discussed in detail with the patient's significant other.
Sepsis due to right-sided pyelonephritis -due to nephrolithiasis. Recently passed kidney stone. Hemodynamically stable, hypertensive. Blood cultures negative so far, urine culture shows Enterococcus species. Appreciate ID input. WBC count now
normal, still with intermittent fevers. Looks nontoxic. Anticipate conversion to amoxicillin on discharge, complete 2 weeks of antibiotics. Discussed with ID service.
Bilateral nephrolithiasis -CT scan done on 04/20 confirms 3 cm stellate calculus in the bladder with several additional small calculi measuring between 1 and 3 mm. No obstructing renal or ureteral calculi noted. There is mild right hydronephrosis
and severe right perinephric edema probably due to recently passed stone. I spoke with urology (Dr. Adler) regarding this case, recommendation is to monitor with antibiotic therapy, IV fluids. No intervention needed urologically. Close
outpatient follow-up after discharge.
High anion gap metabolic acidosis -resolved.
Essential hypertension -continue amlodipine, metoprolol.
Hyperglycemia - likely due to stress, sepsis. Hemoglobin A1c 5.2%.
Acute thrombocytopenia -107k, differential diagnosis includes infection, medications, etc. Highly doubt HIT. Would monitor for now.
Full code
Dispo -SNF versus home with home care pending PT input.
Anticipated Discharge: Within 24 hours
Subjective/Interval History
-
Date of Service: April 24, 2024
Patient seen and examined. No complaints. Seems less confused.
Objective Data
-
Labs:
Laboratory Results
04/24/24
08:03
WBC 10.5
Hgb 11.9 L
Hct 33.8 L
Plt Count 107 L
Sodium 138
Potassium 3.6
Chloride 104
Carbon Dioxide 25
BUN 20
Creatinine 1.1
Glucose 106 H
Calcium 8.3 L
Total Bilirubin 1.2
AST 76 H
ALT 63 H
Alkaline Phosphatase 74
Vital Signs:
Vital Signs
Temp Pulse Resp BP Pulse Ox
102.0 F H 86 22 157/85 95
04/24/24 07:35 04/24/24 07:55 04/24/24 07:35 04/24/24 07:55 04/24/24 07:35
I&O
04/23/24 04/24/24 04/25/24
06:59 06:59 06:59
Intake Total 2280 / 2280
Output Total 1750 / 1750 800 / 800
Balance 530 / 530 -800 / -800
Review of Systems
-
History Source: Patient
All other systems: Reviewed and negative
--- NOTE | 2024-04-24 13:45 | W.PN.ID1 ---
Date of Service
Date of Service: April 24, 2024
Today's Communication
Continue ampicillin for now.
Assessment / Plan
Leukocytosis - resolved
Fever - persists
Complicated urinary tract infection
Suspected right pyelonephritis
Encephalopathy; suspect TME. MRI brain: severe neurodegenerative disease
Hx HTN
Recommendations:
Ucx E. faecalis, amp-sensitive
Continue with ampicillin (d3)
Blood cultures neg to date
Monitor temps
Chief Complaint
-: UTI
Subjective / Review of Systems
No acute complaints.
Vital Signs / Physical Exam
Vital Signs
Vital Signs
Temp Pulse Resp BP Pulse Ox
102.0 F H 86 22 157/85 95
04/24/24 07:35 04/24/24 07:55 04/24/24 07:35 04/24/24 07:55 04/24/24 07:35
Physical Exam
Constitutional: Comfortable
Pulmonary: Clear
Gastrointestinal: Soft, Non Tender, Non Distended and Normal Bowel Sounds
Genito-Urinary: Horn and Clear Urine; Negative CVA Tenderness
Neurological: Awake and Alert
Objective Data
Lab Data
Lab Results
04/24/24 08:03
04/24/24 08:03
Estimated Creat Clear 61 ml/min 04/24/24 08:03
Lactic Acid 1.0 mmol/L (0.7-2.0) 04/21/24 22:19
Total Bilirubin 1.2 mg/dl (0.2-1.3) 04/24/24 08:03
AST 76 U/L (17-59) H 04/24/24 08:03
ALT 63 U/L (0-50) H 04/24/24 08:03
Alkaline Phosphatase 74 U/L (38-126) 09/22/24 08:03
Most recent labs reviewed.
Micro Results:
04/21/24 19:56 Blood Culture - Preliminary
Blood/Venous No Growth in 48 hours- Final report to follow
04/21/24 19:56 Blood Culture - Preliminary
Blood/Venous No Growth in 48 hours- Final report to follow
04/21/24 20:55 Urine Culture - Final
Urine Enterococcus faecalis
Imaging:
04/20/2024 CT abdomen/pelvis without contrast : No obstructing renal or ureteral calculi are demonstrated, however, there is mild right hydronephrosis and severe right perinephric edema which may be on the basis of the recently passed calculus as
there are calculi in the urinary bladder including a 3 cm stellate calculus as well as several additional small calculi measuring between 1 and 3 mm. There are bilateral nonobstructing renal calculi. There is cholelithiasis. There is 4 cm left
renal cyst. Please see full dictation for additional detail.
[2024-04-24 16:00] VITALS: BP 148/80
[2024-04-24] MEDS: LOVENOX 40 MG SC (17:30)
[2024-04-24 23:00] VITALS: BP 148/85
[2024-04-24] MEDS: XALATAN OPHTHALMIC SOLUTION 1 DROP BOTH EYES (23:58)
[2024-04-25] MEDS: DESENEX/MITRAZOL/ZEASORB 1 APPLIC TOPICAL ×3 (00:36→21:08)
[2024-04-25 06:00] VITALS: BMI 29.2
[2024-04-25 06:11] LABS: % Basophils 0.5 % (0-2); % Eosinophils 2.8 % (0-6); % Immature Granulocytes 0.7 % (0-0.5); % Lymphocytes 14.7 % (20.5-51.1); % Neutrophils 71.3 % (42.2-75.2); Absolute Eosinophils 0.2 10^3/uL (0-0.7); Absolute Immature Granulocytes 0.1 10^3/uL (0-0.05); Absolute Lymphocytes 1.1 10^3/uL (1.2-3.4); Absolute Monocytes 0.7 10^3/uL (0.1-0.6); Absolute Neutrophils 5.3 10^3/uL (1.4-6.5); Hematocrit 28.5 % (39.0-52.0); Hemoglobin 10.1 g/dL (13.0-18.0); Mean Corp Hgb Conc. 35.4 g/dL (33.0-37.0); Mean Corpuscular Hgb 31.2 pg (27.0-31.0); Mean Platelet Volume 11.5 fL (7.4-10.4); Nucleated Red Blood Cells % 0 % (-); Platelet Count 130 10^3/uL (130-400); Red Blood Cell Count 3.24 10^6/uL (4.70-6.10); Red Cell Dist. Width 12.6 % (11.5-14.5); White Blood Cell Count 7.4 10^3/uL (4.8-10.8)
[2024-04-25] MEDS: AMPICILLIN 108 MG IV ×3 (06:20→17:10)
[2024-04-25 06:25] LABS: ALT (SGPT) 84 U/L (0-50); AST (SGOT) 68 U/L (17-59); Albumin 2.8 g/dl (3.5-5.0); Alkaline Phosphatase 96 U/L (38-126); Blood Urea Nitrogen 21 mg/dl (9-20); Calcium 8.4 mg/dl (8.4-10.2); Carbon Dioxide 21 mmol/L (22-30); Chloride 106 mmol/L (98-107); Estimated Creatinine Clearance 61 ml/min; Glucose 103 mg/dl (70-99); Potassium 3.4 mmol/L (3.5-5.1); Sodium 141 mmol/L (135-145); Total Bilirubin 1.1 mg/dl (0.2-1.3); Total Protein 5.1 g/dl (6.3-8.2); eGFR > 60.00
[2024-04-25 07:00] VITALS: BP 119/61
[2024-04-25] MEDS: TOPROL XL 25 MG PO (08:15)
[2024-04-25] MEDS: NORVASC 5 MG PO (08:15)
[2024-04-25 10:50] VITALS: BP 135/77; PULSE 77
[2024-04-25] MEDS: KCL 20 MEQ PO (11:18)
[2024-04-25] MEDS: FLUSH (NSS) 2 FLUSH IV (11:55)
--- NOTE | 2024-04-25 13:21 | W.PN.HOSP.TC ---
Today's Communication/Plan
-
Monitor vital signs see plan
PT/OT
Continue antibiotics
Monitor mental status
Assessment / Plan
Assessment / Plan
Gen-awake, alert, not oriented, NAD
HEENT-NC, AT, anicteric, clear oral mm
Neck-supple
CV-reg, no M, +S1/S2
Lungs-clear B/L
Abd-soft, NT, ND
Ext-no edema
Musculoskeletal-no cyanosis, clubbing
Skin-warm and dry
Neuro-grossly non-focal
Psych-calm, cooperative
Acute TME -due to sepsis, pyelonephritis. Brain MRI shows severe right and moderate to severe left temporal volume loss, moderate volume loss in the frontal and parietal lobes. 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
frontotemporal lobar degeneration.
Strongly suspect he has underlying dementia that has not been diagnosed given findings on brain MRI. No stroke noted. Will need formal neurocognitive assessment after discharge. Discussed in detail with the patient's significant other.
Sepsis due to right-sided pyelonephritis -due to nephrolithiasis. Recently passed kidney stone. Hemodynamically stable, hypertensive. Blood cultures negative so far, urine culture shows Enterococcus species. Appreciate ID input. WBC count now
normal, still with intermittent fevers. Looks nontoxic. Anticipate conversion to amoxicillin on discharge, complete 2 weeks of antibiotics. Discussed with ID service.
Bilateral nephrolithiasis -CT scan done on 04/20 confirms 3 cm stellate calculus in the bladder with several additional small calculi measuring between 1 and 3 mm. No obstructing renal or ureteral calculi noted. There is mild right hydronephrosis
and severe right perinephric edema probably due to recently passed stone. Dr Casper spoke with urology (Dr. Adler) regarding this case, recommendation is to monitor with antibiotic therapy, IV fluids. No intervention needed urologically. Close
outpatient follow-up after discharge.
Hypokalemia
replete
High anion gap metabolic acidosis -resolved.
Essential hypertension -continue amlodipine, metoprolol.
Hyperglycemia - likely due to stress, sepsis. Hemoglobin A1c 5.2%.
Acute thrombocytopenia - now slowly improving, 130K, differential diagnosis includes infection, medications, etc. Highly doubt HIT. Would monitor for now.
Full code
Dispo -SNF versus home with home care
Anticipated Discharge: Within 24 hours
Subjective/Interval History
-
Date of Service: April 25, 2024
denies pain
Objective Data
-
Labs:
Laboratory Results
04/25/24
05:05
WBC 7.4
Hgb 10.1 L
Hct 28.5 L
Plt Count 130 D
Sodium 141
Potassium 3.4 L
Chloride 106
Carbon Dioxide 21 L
BUN 21 H
Creatinine 1.1
Glucose 103 H
Calcium 8.4
Total Bilirubin 1.1
AST 68 H
ALT 84 H
Alkaline Phosphatase 96
Vital Signs:
Vital Signs
Temp Pulse Resp BP Pulse Ox
99.6 F 87 17 119/61 92
04/25/24 07:00 04/25/24 08:15 04/25/24 07:00 04/25/24 08:15 04/25/24 07:00
I&O
04/24/24 04/25/24 04/26/24
06:59 06:59 06:59
Intake Total 200 / 200 1060 / 1060
Output Total 800 / 800 1100 / 1100
Balance -600 / -600 -40 / -40
--- NOTE | 2024-04-25 14:13 | W.PN.ID1 ---
Date of Service
Date of Service: April 25, 2024
Today's Communication
Continue ampicillin for today.
Assessment / Plan
Leukocytosis - resolved
Fever - improving
Complicated urinary tract infection
Suspected right pyelonephritis
Encephalopathy; suspect TME. MRI brain: severe neurodegenerative disease
Hx HTN
Recommendations:
Ucx E. faecalis, amp-sensitive
Continue with ampicillin (d#5)
Blood cultures neg to date
Monitor temps
May be able to transition to an oral regimen in the next 24 to 48 hours.
����������������������������������������������������������
Chief Complaint
-: UTI
Subjective / Review of Systems
Review of Systems: No Fever, No Chills and No Dysuria
Vital Signs / Physical Exam
Vital Signs
Vital Signs
Temp Pulse Resp BP Pulse Ox
99.6 F 87 17 119/61 92
04/25/24 07:00 04/25/24 08:15 04/25/24 07:00 04/25/24 08:15 04/25/24 07:00
Physical Exam
Constitutional: Comfortable
Pulmonary: Clear
Gastrointestinal: Soft, Non Tender, Non Distended and Normal Bowel Sounds
Genito-Urinary: Horn and Clear Urine; Negative CVA Tenderness
Neurological: Awake and Alert
Objective Data
Lab Data
Lab Results
04/25/24 05:05
04/25/24 05:05
Estimated Creat Clear 61 ml/min 04/25/24 05:05
Lactic Acid 1.0 mmol/L (0.7-2.0) 04/21/24 22:19
Total Bilirubin 1.1 mg/dl (0.2-1.3) 04/25/24 05:05
AST 68 U/L (17-59) H 04/25/24 05:05
ALT 84 U/L (0-50) H 04/25/24 05:05
Alkaline Phosphatase 96 U/L (38-126) 04/25/24 05:05
Most recent labs reviewed.
Micro Results:
04/21/24 19:56 Blood Culture - Preliminary
Blood/Venous No Growth in 72 hours- Final report to follow
04/21/24 19:56 Blood Culture - Preliminary
Blood/Venous No Growth in 72 hours- Final report to follow
04/21/24 20:55 Urine Culture - Final
Urine Enterococcus faecalis
Imaging:
04/20/2024 CT abdomen/pelvis without contrast : No obstructing renal or ureteral calculi are demonstrated, however, there is mild right hydronephrosis and severe right perinephric edema which may be on the basis of the recently passed calculus as
there are calculi in the urinary bladder including a 3 cm stellate calculus as well as several additional small calculi measuring between 1 and 3 mm. There are bilateral nonobstructing renal calculi. There is cholelithiasis. There is 4 cm left
renal cyst. Please see full dictation for additional detail.
[2024-04-25 14:45] VITALS: BP 140/88
[2024-04-25 15:00] VITALS: BP 136/77
[2024-04-25] MEDS: LOVENOX 40 MG SC (17:11)
[2024-04-25] MEDS: XALATAN OPHTHALMIC SOLUTION 1 DROP BOTH EYES (21:10)
[2024-04-25 23:42] VITALS: BP 166/76
[2024-04-26] MEDS: AMPICILLIN 108 MG IV ×3 (00:09→11:30)
[2024-04-26 00:23] VITALS: BP 143/75
[2024-04-26 03:40] VITALS: BMI 29.3
[2024-04-26 07:31] VITALS: BP 152/92
[2024-04-26 07:48] LABS: % Basophils 0.8 % (0-2); % Eosinophils 3.6 % (0-6); % Immature Granulocytes 0.8 % (0-0.5); % Lymphocytes 16.3 % (20.5-51.1); % Monocytes 11.7 % (1.7-9.3); % Neutrophils 66.8 % (42.2-75.2); Absolute Basophils 0.1 10^3/uL (0-0.2); Absolute Eosinophils 0.3 10^3/uL (0-0.7); Absolute Immature Granulocytes 0.1 10^3/uL (0-0.05); Absolute Lymphocytes 1.2 10^3/uL (1.2-3.4); Absolute Monocytes 0.9 10^3/uL (0.1-0.6); Absolute Neutrophils 4.9 10^3/uL (1.4-6.5); Hematocrit 30.9 % (39.0-52.0); Hemoglobin 11.1 g/dL (13.0-18.0); Mean Corp Hgb Conc. 35.9 g/dL (33.0-37.0); Mean Corpuscular Hgb 31.7 pg (27.0-31.0); Mean Corpuscular Volume 88.3 fL (80.0-94.0); Mean Platelet Volume 10.5 fL (7.4-10.4); Nucleated Red Blood Cells % 0 % (-); Platelet Count 171 10^3/uL (130-400); White Blood Cell Count 7.4 10^3/uL (4.8-10.8)
[2024-04-26] MEDS: TOPROL XL 25 MG PO (07:50)
[2024-04-26] MEDS: NORVASC 5 MG PO (07:50)
[2024-04-26] MEDS: DESENEX/MITRAZOL/ZEASORB 1 APPLIC TOPICAL ×2 (07:50→20:56)
[2024-04-26 08:42] LABS: Blood Urea Nitrogen 22 mg/dl (9-20); Calcium 8.6 mg/dl (8.4-10.2); Carbon Dioxide 21 mmol/L (22-30); Chloride 108 mmol/L (98-107); Estimated Creatinine Clearance 56 ml/min; Glucose 99 mg/dl (70-99); Potassium 3.7 mmol/L (3.5-5.1); Sodium 142 mmol/L (135-145); eGFR > 60.00
--- NOTE | 2024-04-26 12:32 | W.PN.HOSP.TC ---
Today's Communication/Plan
-
monitor vitals
see plan
dc if transitioned to PO abx
ID following
pt/ot
Assessment / Plan
Assessment / Plan
Gen-awake, alert, not oriented, NAD
HEENT-NC, AT, anicteric, clear oral mm
Neck-supple
CV-reg, no M, +S1/S2
Lungs-clear B/L
Abd-soft, NT, ND
Ext-no edema
Musculoskeletal-no cyanosis, clubbing
Skin-warm and dry
Neuro-grossly non-focal
Psych-calm, cooperative
Acute TME -due to sepsis, pyelonephritis. Brain MRI shows severe right and moderate to severe left temporal volume loss, moderate volume loss in the frontal and parietal lobes. 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
frontotemporal lobar degeneration.
Strongly suspect he has underlying dementia that has not been diagnosed given findings on brain MRI. No stroke noted. Will need formal neurocognitive assessment after discharge. Discussed in detail with the patient's significant other.
Sepsis due to right-sided pyelonephritis -due to nephrolithiasis. Recently passed kidney stone. Hemodynamically stable, hypertensive. Blood cultures negative so far, urine culture shows Enterococcus species. Appreciate ID input. WBC count now
normal, still with intermittent fevers. Looks nontoxic. Anticipate conversion to amoxicillin on discharge, complete 2 weeks of antibiotics. abx per ID
Bilateral nephrolithiasis -CT scan done on 04/20 confirms 3 cm stellate calculus in the bladder with several additional small calculi measuring between 1 and 3 mm. No obstructing renal or ureteral calculi noted. There is mild right hydronephrosis
and severe right perinephric edema probably due to recently passed stone. Dr Casper spoke with urology (Dr. Adler) regarding this case, recommendation is to monitor with antibiotic therapy, IV fluids. No intervention needed urologically. Close
outpatient follow-up after discharge.
Hypokalemia
replete
High anion gap metabolic acidosis -resolved.
Essential hypertension -continue amlodipine, metoprolol.
Hyperglycemia - likely due to stress, sepsis. Hemoglobin A1c 5.2%.
Acute thrombocytopenia - now slowly improving, 171K, differential diagnosis includes infection, medications, etc. Highly doubt HIT. Would monitor for now.
Full code
Dispo -SNF
Anticipated Discharge: Today
Subjective/Interval History
-
Date of Service: April 26, 2024
denies pain
Objective Data
-
Labs:
Laboratory Results
04/26/24
07:23
WBC 7.4
Hgb 11.1 L
Hct 30.9 L
Plt Count 171 D
Sodium 142
Potassium 3.7
Chloride 108 H
Carbon Dioxide 21 L
BUN 22 H
Creatinine 1.2
Glucose 99
Calcium 8.6
Vital Signs:
Vital Signs
Temp Pulse Resp BP Pulse Ox
98.6 F 75 17 152/92 94
04/26/24 07:31 04/26/24 07:50 04/26/24 07:31 04/26/24 07:50 04/26/24 07:31
I&O
04/25/24 04/26/24 04/27/24
06:59 06:59 06:59
Intake Total 1060 / 1060 400 / 400
Output Total 1100 / 1100 1500 / 1500
Balance -40 / -40 -1100 / -1100
--- NOTE | 2024-04-26 13:00 | W.PN.ID1 ---
Date of Service
Date of Service: April 26, 2024
Today's Communication
Transition to amoxicillin. See below�
Assessment / Plan
Leukocytosis - resolved
Fever - improving
Complicated urinary tract infection
Suspected right pyelonephritis
Encephalopathy; suspect TME. MRI brain: severe neurodegenerative disease
Hx HTN
Recommendations:
Ucx E. faecalis, amp-sensitive
Continue antibiotics. Given clinical improvement, transition to amoxicillin 500 mg p.o. 3 times daily for an additional 8 days.
����������������������������������������������������������
Chief Complaint
-: UTI (Suspected pyelonephritis)
Subjective / Review of Systems
Review of Systems: No Fever and No Chills
Vital Signs / Physical Exam
Vital Signs
Vital Signs
Temp Pulse Resp BP Pulse Ox
98.6 F 75 17 152/92 94
04/26/24 07:31 04/26/24 07:50 04/26/24 07:31 04/26/24 07:50 04/26/24 07:31
Physical Exam
Constitutional: No Acute Distress, Comfortable and Non-toxic
Eyes: No Conjunctival Hemorrhage and Sclera Anicteric
Pulmonary: Non Labored
Gastrointestinal: Non Distended
Extremities: Negative Cyanosis or Erythema
Skin: Negative Rash or Jaundice
Neurological: Awake and Alert
Psychological: Calm
Objective Data
Lab Data
Lab Results
04/26/24 07:23
04/26/24 07:23
Estimated Creat Clear 56 ml/min 04/26/24 07:23
Lactic Acid 1.0 mmol/L (0.7-2.0) 04/21/24 22:19
Total Bilirubin 1.1 mg/dl (0.2-1.3) 04/25/24 05:05
AST 68 U/L (17-59) H 04/25/24 05:05
ALT 84 U/L (0-50) H 04/25/24 05:05
Alkaline Phosphatase 96 U/L (38-126) 04/25/24 05:05
Most recent labs reviewed.
Micro Results:
04/21/24 19:56 Blood Culture - Preliminary
Blood/Venous No Growth in 4 days- Final report to follow
04/21/24 19:56 Blood Culture - Preliminary
Blood/Venous No Growth in 4 days- Final report to follow
04/21/24 20:55 Urine Culture - Final
Urine Enterococcus faecalis
Imaging:
04/20/2024 CT abdomen/pelvis without contrast : No obstructing renal or ureteral calculi are demonstrated, however, there is mild right hydronephrosis and severe right perinephric edema which may be on the basis of the recently passed calculus as
there are calculi in the urinary bladder including a 3 cm stellate calculus as well as several additional small calculi measuring between 1 and 3 mm. There are bilateral nonobstructing renal calculi. There is cholelithiasis. There is 4 cm left
renal cyst. Please see full dictation for additional detail.
Care Review
Plan reviewed with: Physician (Hospitalist)
[2024-04-26] MEDS: AMOXIL 500 MG PO ×2 (14:42→20:57)
[2024-04-26 15:23] VITALS: BP 139/68
[2024-04-26] MEDS: LOVENOX 40 MG SC (17:03)
--- NOTE | 2024-04-26 17:05 | CM ---
Jeovanny from [facility] accepted pt.
Pt had Medicare.
IMM given explained signed on chart.
Pt will change to po abx.
Spoke with Tara MATHEWS in room.
Ambulance requested . Medical nec form completed
[facility]
report [phone]
fax [phone]
PLAN To [facility]
[2024-04-26] MEDS: XALATAN OPHTHALMIC SOLUTION 1 DROP BOTH EYES (20:57)
[2024-04-26 23:35] VITALS: BP 123/94
[2024-04-27 05:42] LABS: % Basophils 0.9 % (0-2); % Eosinophils 3.3 % (0-6); % Immature Granulocytes 1.2 % (0-0.5); % Lymphocytes 16.1 % (20.5-51.1); % Monocytes 11.1 % (1.7-9.3); % Neutrophils 67.4 % (42.2-75.2); Absolute Basophils 0.1 10^3/uL (0-0.2); Absolute Eosinophils 0.3 10^3/uL (0-0.7); Absolute Immature Granulocytes 0.1 10^3/uL (0-0.05); Absolute Lymphocytes 1.3 10^3/uL (1.2-3.4); Absolute Monocytes 0.9 10^3/uL (0.1-0.6); Absolute Neutrophils 5.4 10^3/uL (1.4-6.5); Hematocrit 30.8 % (39.0-52.0); Hemoglobin 10.8 g/dL (13.0-18.0); Mean Corp Hgb Conc. 35.1 g/dL (33.0-37.0); Mean Corpuscular Volume 88.5 fL (80.0-94.0); Mean Platelet Volume 10.9 fL (7.4-10.4); Nucleated Red Blood Cells % 0 % (-); Platelet Count 203 10^3/uL (130-400); Red Blood Cell Count 3.48 10^6/uL (4.70-6.10); White Blood Cell Count 8.1 10^3/uL (4.8-10.8)
[2024-04-27 06:10] LABS: Blood Urea Nitrogen 23 mg/dl (9-20); Calcium 8.7 mg/dl (8.4-10.2); Carbon Dioxide 23 mmol/L (22-30); Chloride 107 mmol/L (98-107); Estimated Creatinine Clearance 61 ml/min; Glucose 101 mg/dl (70-99); Potassium 3.8 mmol/L (3.5-5.1); Sodium 142 mmol/L (135-145); eGFR > 60.00
[2024-04-27] MEDS: AMOXIL 500 MG PO ×2 (06:23→14:24)
[2024-04-27 07:00] VITALS: BP 121/99
[2024-04-27] MEDS: NORVASC 5 MG PO (08:08)
[2024-04-27] MEDS: DESENEX/MITRAZOL/ZEASORB 1 APPLIC TOPICAL (08:09)
[2024-04-27] MEDS: TOPROL XL 25 MG PO (08:09)
--- NOTE | 2024-04-27 09:28 | CM ---
entered order for discharge.
Jeovanny from [facility] accepted pt.
Pt changed to po abx.
Spoke with Tara MATHEWS and pt in room.
Ambulance requested . Medical nec form completed
[facility]
report [phone]
fax [phone]
PLAN To [facility]
--- NOTE | 2024-04-27 11:05 | W.PN.HOSP.TC ---
Addendum entered and electronically signed by Rolando Meier MD 04/27/24 12:40:
Time of discharge 37 minutes
Original Note:
Today's Communication/Plan
-
Monitor vital signs
see plan
DC if has placement
Continue antibiotics
Assessment / Plan
Assessment / Plan
Gen-awake, alert, not oriented, NAD
HEENT-NC, AT, anicteric, clear oral mm
Neck-supple
CV-reg, no M, +S1/S2
Lungs-clear B/L
Abd-soft, NT, ND
Ext-no edema
Musculoskeletal-no cyanosis, clubbing
Skin-warm and dry
Neuro-grossly non-focal
Psych-calm, cooperative
Acute TME -due to sepsis, pyelonephritis. Brain MRI shows severe right and moderate to severe left temporal volume loss, moderate volume loss in the frontal and parietal lobes. 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
frontotemporal lobar degeneration.
Strongly suspect he has underlying dementia that has not been diagnosed given findings on brain MRI. No stroke noted. Will need formal neurocognitive assessment after discharge. Discussed in detail with the patient's significant other.
Sepsis due to right-sided pyelonephritis -due to nephrolithiasis. Recently passed kidney stone. Hemodynamically stable, hypertensive. Blood cultures negative so far, urine culture shows Enterococcus species. Appreciate ID input. WBC count now
normal, still with intermittent fevers. Looks nontoxic. Anticipate conversion to amoxicillin on discharge, complete 2 weeks of antibiotics. abx per ID. transition to amoxicillin 500 mg p.o. 3 times daily for an additional 8 days.
Bilateral nephrolithiasis -CT scan done on 04/20 confirms 3 cm stellate calculus in the bladder with several additional small calculi measuring between 1 and 3 mm. No obstructing renal or ureteral calculi noted. There is mild right hydronephrosis
and severe right perinephric edema probably due to recently passed stone. Dr Casper spoke with urology (Dr. Adler) regarding this case, recommendation is to monitor with antibiotic therapy, IV fluids. No intervention needed urologically. Close
outpatient follow-up after discharge.
Hypokalemia
replete
High anion gap metabolic acidosis -resolved.
Essential hypertension -continue amlodipine, metoprolol.
Hyperglycemia - likely due to stress, sepsis. Hemoglobin A1c 5.2%.
Acute thrombocytopenia - now slowly improving, 203 K, differential diagnosis includes infection, medications, etc. Highly doubt HIT. Would monitor for now.
Full code
Dispo -SNF
Anticipated Discharge: Today
Subjective/Interval History
-
Date of Service: April 27, 2024
denies pain
Objective Data
-
Labs:
Laboratory Results
04/27/24
05:02
WBC 8.1
Hgb 10.8 L
Hct 30.8 L
Plt Count 203
Sodium 142
Potassium 3.8
Chloride 107
Carbon Dioxide 23
BUN 23 H
Creatinine 1.1
Glucose 101 H
Calcium 8.7
Vital Signs:
Vital Signs
Temp Pulse Resp BP Pulse Ox
98.2 F 67 18 121/99 95
04/27/24 07:00 04/27/24 07:00 04/27/24 07:00 04/27/24 07:00 04/27/24 07:00
I&O
04/26/24 04/27/24 04/28/24
06:59 06:59 06:59
Intake Total 400 / 400 720 / 720
Output Total 1500 / 1500 1400 / 1400
Balance -1100 / -1100 -680 / -680
--- NOTE | 2024-04-27 12:40 | W.DCSUMMARY ---
Discharge Summary
Discharge Data
Date of Admission: 04/21/24
Date of Discharge: 04/27/24
-
Pending Results: No
Hospital Course
78-year-old male with past medical history of essential hypertension came to the hospital with fever and confusion. Patient symptoms were likely thought was secondary to sepsis secondary pyelonephritis and he also had acute toxic metabolic
encephalopathy which over time continue to improve. MRI of the head was done which showed possibility of underlying dementia for which patient instructed to get neurocognitive assessment upon discharge with neurology. He also had nephrolithiasis
and some pyelonephritis which was likely thought was secondary to recently passed kidney stone. There was mild right-sided hydronephrosis which urology instructed patient to follow-up with them outpatient. Patient was also eval by physical therapy
who recommended SNF. Once patient symptoms continue to improve he was then discharged home with instructions to follow-up with all the physicians outpatient.
Discharge Plan
-
Patient Disposition: [facility]/SNF
Discharge Diagnosis/Procedures: Acute toxic metabolic encephalopathy
Sepsis secondary to pyelonephritis
Bilateral nephrolithiasis
Anion gap metabolic acidosis
Cognitive impairment concerning for developing dementia
Diet: As tolerated
Activity: With assistance and As tolerated
Driving Restrictions: Not until seen by your Dr
Bathing Restrictions: None
Activity Restrictions/Additional Instructions:
amoxicillin 500 mg p.o. 3 times daily for an additional 8 days
Please follow-up with neurology for neurocognitive evaluation
Referrals:
Edilson Adler MD [Active] -
Jeremiah Ashby DO [Family Provider] - in less than 1 week
Fredi An MD [Active] -
Prescriptions:
New
amoxicillin 500 mg Capsule
500 mg PO Q8H Qty: 24 0RF
acetaminophen 325 mg Tablet
650 mg PO Q4HPRN PRN (Reason: Mild Pain / Temp > 101) Qty: 0 0RF
miconazole nitrate [Miconazorb AF] 2 % Powder
1 applic topical BID Qty: 0 0RF
Continued
metoprolol succinate 25 mg tablet extended release 24 hr
25 mg PO DAILY Qty: 30 0RF
latanoprost 0.005 % drops
1 drp BOTH EYES HS
amlodipine 5 mg tablet
5 mg PO DAILY
Multiple Supplements
1 dose PO .1-2X DAILY
Patient Comments:
04/21/2024: Spouse states pt takes multiple different supplements, spouse unsure of all supplements or how often he takes them. She thinks he takes D3, K2, K4, B complex.
Discharge Orders:
Discharge Patient (As Directed); Ordered 04/27/24
Ordered By: Rolando Meier
Discharge Date and Time
Discharge Date/Time: 04/27/24 18:18
Print Language: BENGALI
--- NOTE | 2024-04-27 14:40 | W.PN.ID1 ---
Date of Service
Date of Service: April 27, 2024
Today's Communication
Continue abx.
Assessment / Plan
Leukocytosis - resolved
Fever - improving
Complicated urinary tract infection
Suspected right pyelonephritis
Encephalopathy; suspect TME. MRI brain: severe neurodegenerative disease
Hx HTN
Recommendations:
Ucx E. faecalis, amp-sensitive
Continue amoxicillin 500 mg p.o. 3 times daily for an additional 7 days.
����������������������������������������������������������
Chief Complaint
-: UTI (Suspected pyelonephritis)
Subjective / Review of Systems
Review of Systems: No Fever and No Chills
Vital Signs / Physical Exam
Vital Signs
Vital Signs
Temp Pulse Resp BP Pulse Ox
98.2 F 67 18 121/99 95
04/27/24 07:00 04/27/24 07:00 04/27/24 07:00 04/27/24 07:00 04/27/24 07:00
Physical Exam
Constitutional: No Acute Distress, Comfortable and Non-toxic
Eyes: No Conjunctival Hemorrhage and Sclera Anicteric
Pulmonary: Non Labored
Gastrointestinal: Non Distended
Extremities: Negative Cyanosis or Erythema
Skin: Negative Rash or Jaundice
Neurological: Awake and Alert
Psychological: Calm
Objective Data
Lab Data
Lab Results
04/27/24 05:02
04/27/24 05:02
Estimated Creat Clear 61 ml/min 04/27/24 05:02
Lactic Acid 1.0 mmol/L (0.7-2.0) 04/21/24 22:19
Total Bilirubin 1.1 mg/dl (0.2-1.3) 04/25/24 05:05
AST 68 U/L (17-59) H 04/25/24 05:05
ALT 84 U/L (0-50) H 04/25/24 05:05
Alkaline Phosphatase 96 U/L (38-126) 04/25/24 05:05
Most recent labs reviewed.
CT Scan: Image Reviewed
Micro Results:
04/21/24 19:56 Blood Culture - Final
Blood/Venous No Growth - Final Report
04/21/24 19:56 Blood Culture - Final
Blood/Venous No Growth - Final Report
04/21/24 20:55 Urine Culture - Final
Urine Enterococcus faecalis
Imaging:
04/20/2024 CT abdomen/pelvis without contrast : No obstructing renal or ureteral calculi are demonstrated, however, there is mild right hydronephrosis and severe right perinephric edema which may be on the basis of the recently passed calculus as
there are calculi in the urinary bladder including a 3 cm stellate calculus as well as several additional small calculi measuring between 1 and 3 mm. There are bilateral nonobstructing renal calculi. There is cholelithiasis. There is 4 cm left
renal cyst. Please see full dictation for additional detail.
Care Review
Plan reviewed with: Physician (Hospitalist)
[2024-04-27 15:00] VITALS: BP 142/70
[2024-04-27] MEDS: LOVENOX 40 MG SC (17:41)
== END 2024-04-27 18:18 | DRG 871 ==
LOC: 3 WEST ACU 20:31
PROVIDERS: Hospitalist; Physician Assistant Medical; Student in an Organized Health Care Education/Training Program; ADMITTING PHYSICIAN Hospitalist; ATTENDING PHYSICIAN Internal Medicine; EMERGENCY PHYSICIAN Emergency Medicine; FAMILY PHYSICIAN Family Medicine; OTHER PHYSICIAN Internal Medicine Infectious Disease; OTHER PHYSICIAN Psychiatry & Neurology Neurology
DX: A41.9 Sepsis, unspecified organism (principal); G92.8 Other toxic encephalopathy; E87.20 Acidosis, unspecified; N13.6 Pyonephrosis; E11.9 Type 2 diabetes mellitus without complications; I10 Essential (primary) hypertension; I49.1 Atrial premature depolarization; E78.00 Pure hypercholesterolemia, unspecified; H40.9 Unspecified glaucoma; K59.00 Constipation, unspecified; R41.89 Other symptoms and signs involving cognitive functions and awareness; E87.6 Hypokalemia; Z79.899 Other long term (current) drug therapy; Z83.3 Family history of diabetes mellitus
CPT/HCPCS: 70551; 74176; 80048; 80053; 81003; 81015; 82607; 83036; 83605; 83690; 85025; 85027; 86803; 87040; 87077; 87086; 87186; 93005; 96361; 96374; 97116; 97163; 97167; 97530; 97535; 99285

== ENCOUNTER → 2024-05-05 11:28 | Outpatient (REF) | payer OTHER, MEDICARE, SELFPAY ==
[2024-05-05 12:13] LABS: % Basophils 1.5 % (0-2); % Eosinophils 2.9 % (0-6); % Immature Granulocytes 0.6 % (0-0.5); % Lymphocytes 28.6 % (20.5-51.1); % Monocytes 10.3 % (1.7-9.3); % Neutrophils 56.1 % (42.2-75.2); Absolute Basophils 0.1 10^3/uL (0-0.2); Absolute Eosinophils 0.2 10^3/uL (0-0.7); Absolute Monocytes 0.7 10^3/uL (0.1-0.6); Absolute Neutrophils 3.9 10^3/uL (1.4-6.5); Hematocrit 34.2 % (39.0-52.0); Hemoglobin 11.5 g/dL (13.0-18.0); Mean Corp Hgb Conc. 33.6 g/dL (33.0-37.0); Mean Corpuscular Hgb 32.1 pg (27.0-31.0); Mean Corpuscular Volume 95.5 fL (80.0-94.0); Mean Platelet Volume 10.2 fL (7.4-10.4); Nucleated Red Blood Cells % 0 % (-); Platelet Count 498 10^3/uL (130-400); Red Blood Cell Count 3.58 10^6/uL (4.70-6.10); Red Cell Dist. Width 12.3 % (11.5-14.5); White Blood Cell Count 6.9 10^3/uL (4.8-10.8)
[2024-05-05 12:31] LABS: ALT (SGPT) 44 U/L (0-50); AST (SGOT) 25 U/L (17-59); Albumin 3.8 g/dl (3.5-5.0); Alkaline Phosphatase 96 U/L (38-126); Blood Urea Nitrogen 26 mg/dl (9-20); Calcium 9.1 mg/dl (8.4-10.2); Carbon Dioxide 24 mmol/L (22-30); Chloride 105 mmol/L (98-107); Glucose 84 mg/dl (70-99); Magnesium 2.1 mg/dl (1.6-2.3); Potassium 5.4 mmol/L (3.5-5.1); Sodium 142 mmol/L (135-145); Total Bilirubin 0.5 mg/dl (0.2-1.3); Total Protein 6.5 g/dl (6.3-8.2); eGFR 56.23
== END ==
LOC: OLABN 11:28
PROVIDERS: ATTENDING PHYSICIAN Student in an Organized Health Care Education/Training Program
DX: N10 Acute pyelonephritis (principal)
CPT/HCPCS: 36415; 80053; 83735; 85025

== ENCOUNTER → 2024-06-10 12:52 | Outpatient (REF) | payer MEDICARE, SELFPAY | LOC: HWLAB 12:52 | PROVIDERS: ATTENDING PHYSICIAN Surgery; FAMILY PHYSICIAN Family Medicine | DX: R97.20 Elevated prostate specific antigen [PSA] (principal) | CPT/HCPCS: 36415; 84153; 84154 ==

== ENCOUNTER → 2024-06-24 13:56 | Outpatient (REF) | payer MEDICARE, SELFPAY ==
[2024-06-24 14:34] LABS: Ionized Calcium 1.17 mMOL/L (1.15-1.33)
[2024-06-24 14:45] LABS: Calcium 9.7 mg/dl (8.4-10.2)
[2024-06-24 15:04] LABS: Free T4 1.28 ng/dl (0.78-2.19)
[2024-06-24 15:54] LABS: Folate > 20.0 ng/ml (2.76-20); Vitamin B12 411 pg/ml (239-931)
[2024-06-25 08:49] LABS: Intact PTH 52.5 pg/ml (13.6-85.8)
== END ==
LOC: REG 13:56
PROVIDERS: ATTENDING PHYSICIAN Specialist
DX: E03.9 Hypothyroidism, unspecified (principal); E21.3 Hyperparathyroidism, unspecified; D51.8 Other vitamin B12 deficiency anemias
CPT/HCPCS: 36415; 82330; 82607; 82746; 83970; 84439; 84443

== ENCOUNTER 2024-06-27 09:29 | Outpatient (RCR) | payer MEDICARE, SELFPAY | END 2024-06-27 23:59 | disposition home or self-care (01) | LOC: RST 09:29 | PROVIDERS: ATTENDING PHYSICIAN Family Medicine | DX: G93.40 Encephalopathy, unspecified (principal); R47.01 Aphasia | CPT/HCPCS: 92507; 92523 ==

== ENCOUNTER 2024-07-21 10:53 | Outpatient (RCR) | payer MEDICARE, SELFPAY | END 2024-07-21 23:59 | disposition home or self-care (01) | LOC: RST 10:53 | PROVIDERS: ATTENDING PHYSICIAN Family Medicine | DX: G93.40 Encephalopathy, unspecified (principal); R47.01 Aphasia | CPT/HCPCS: 92507 ==

== ENCOUNTER → 2024-07-28 13:36 | Day surgery (SDC) | payer MEDICARE, SELFPAY ==
[2024-07-28 14:08] LABS: Hematocrit 42.2 % (39.0-52.0); Hemoglobin 14.2 g/dL (13.0-18.0); Mean Corp Hgb Conc. 33.6 g/dL (33.0-37.0); Mean Corpuscular Hgb 31.3 pg (27.0-31.0); Mean Platelet Volume 9.5 fL (7.4-10.4); Platelet Count 195 10^3/uL (130-400); Red Blood Cell Count 4.54 10^6/uL (4.70-6.10); Red Cell Dist. Width 12.5 % (11.5-14.5); White Blood Cell Count 5.3 10^3/uL (4.8-10.8)
[2024-07-28 14:18] LABS: Blood Urea Nitrogen 27 mg/dl (9-20); Calcium 9.6 mg/dl (8.4-10.2); Carbon Dioxide 25 mmol/L (22-30); Chloride 105 mmol/L (98-107); Glucose 101 mg/dl (70-99); Potassium 4.2 mmol/L (3.5-5.1); Sodium 139 mmol/L (135-145); eGFR 55.88
== END ==
LOC: SDSPAT 13:36
PROVIDERS: ATTENDING PHYSICIAN Surgery; FAMILY PHYSICIAN Family Medicine
DX: Z01.812 Encounter for preprocedural laboratory examination (principal)
CPT/HCPCS: 85027; 36415; 80048

== ENCOUNTER → 2024-08-04 15:05 | Outpatient (REF) | payer MEDICARE, SELFPAY ==
[2024-08-04 15:33] LABS: Urine Albumin Trace (Neg - Trace); Urine Bilirubin Negative (Negative); Urine Character Clear (Clear); Urine Color Yellow; Urine Glucose Negative (Negative); Urine Ketone Negative (Negative); Urine Leukocyte Negative (Negative); Urine Nitrite Negative (Negative); Urine Occult Blood Negative (Negative); Urine Specific Gravity 1.015 (<1.030); Urine Urobilinogen Negative (Neg - 1+)
[2024-08-04 15:40] LABS: % Basophils 1.5 % (0-2); % Eosinophils 1.6 % (0-6); % Immature Granulocytes 0.1 % (0-0.5); % Lymphocytes 30.2 % (20.5-51.1); % Monocytes 8.4 % (1.7-9.3); % Neutrophils 58.2 % (42.2-75.2); Absolute Basophils 0.1 10^3/uL (0-0.2); Absolute Eosinophils 0.1 10^3/uL (0-0.7); Absolute Lymphocytes 2.2 10^3/uL (1.2-3.4); Absolute Monocytes 0.6 10^3/uL (0.1-0.6); Absolute Neutrophils 4.3 10^3/uL (1.4-6.5); Hematocrit 41.9 % (39.0-52.0); Hemoglobin 14.8 g/dL (13.0-18.0); Mean Corp Hgb Conc. 35.3 g/dL (33.0-37.0); Mean Corpuscular Hgb 32.1 pg (27.0-31.0); Mean Corpuscular Volume 90.9 fL (80.0-94.0); Mean Platelet Volume 9.7 fL (7.4-10.4); Nucleated Red Blood Cells % 0 % (-); Platelet Count 237 10^3/uL (130-400); Red Blood Cell Count 4.61 10^6/uL (4.70-6.10); Red Cell Dist. Width 12.4 % (11.5-14.5); White Blood Cell Count 7.4 10^3/uL (4.8-10.8)
[2024-08-04 15:47] LABS: INR 0.94; PT 13.1 Sec (11.4-14.6)
[2024-08-04 15:48] LABS: APTT 36.5 Sec (23.4-35.0)
[2024-08-04 16:08] LABS: ALT (SGPT) 21 U/L (0-50); AST (SGOT) 29 U/L (17-59); Albumin 4.9 g/dl (3.5-5.0); Alkaline Phosphatase 76 U/L (38-126); Blood Urea Nitrogen 28 mg/dl (9-20); Calcium 9.6 mg/dl (8.4-10.2); Carbon Dioxide 22 mmol/L (22-30); Chloride 105 mmol/L (98-107); Glucose 98 mg/dl (70-99); Potassium 4.6 mmol/L (3.5-5.1); Sodium 138 mmol/L (135-145); Total Bilirubin 0.6 mg/dl (0.2-1.3); Total Protein 7.8 g/dl (6.3-8.2); eGFR 43.56
== END ==
LOC: REG 15:05
PROVIDERS: ATTENDING PHYSICIAN Surgery
DX: N40.1 Benign prostatic hyperplasia with lower urinary tract symptoms (principal); E87.20 Acidosis, unspecified; A41.9 Sepsis, unspecified organism
CPT/HCPCS: 36415; 80053; 81003; 85025; 85610; 85730; 87086

== ENCOUNTER 2024-08-08 07:47 | Day surgery (SDC) | payer MEDICARE, SELFPAY ==
[2024-07-28 14:10] VITALS: BMI 28.4
[2024-08-08] VITALS (9 sets, daily range): BP systolic 107–154; BP diastolic 52–86; BMI 28.4; BMI 27.2
[2024-08-08] MEDS: NORMOSOL-R/PLASMALYTE-A 1000 IV (13:05)
--- NOTE | 2024-08-08 15:06 | W.IMMPOSTOP ---
Surgical Immed Post Op Note
-
Primary Surgeon: Vitor
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
Post-op Diagnosis: Same
Procedure Performed: meatal/urethral dilation, cystolitholapaxy (complicated, >2.5 cm), TURP
Anesthesia Type: LMA
Specimen / Cultures: Prostate chips/None
Estimated Blood Loss: Negligible
Drains: 22Fr 3-way catheter (30 cc in balloon)
Complications: None
Operative Findings: Large dense stellate bladder stone fragmented in totality - all bladder fragments/dust evacuated on final cystoscopy.
Wide resection down to capsule of median lobe and lateral lobes w/ no MOSS on final cystoscopy.
[2024-08-08] MEDS: DETROL LA 4 MG PO (15:52)
--- NOTE | 2024-08-08 18:31 | PTCARENOTE ---
pt admitted from PACU awake alert oriented x3. Pt and friend at bedside report more recent offers no c/o pain. MS, LCTA on RA, abd soft NT +BS x4. CBI running ott draining punch colored urine. skin CDI. No edema +PP. SCDs applied. CB in reach.
[2024-08-08] MEDS: FLOMAX 0.4 MG PO (21:22)
[2024-08-08] MEDS: XALATAN OPHTHALMIC SOLUTION 1 DROP BOTH EYES (23:25)
[2024-08-09 05:47] LABS: % Basophils 0.3 % (0-2); % Eosinophils 0.1 % (0-6); % Immature Granulocytes 0.2 % (0-0.5); % Lymphocytes 15.2 % (20.5-51.1); % Monocytes 7.2 % (1.7-9.3); Absolute Lymphocytes 1.3 10^3/uL (1.2-3.4); Absolute Monocytes 0.6 10^3/uL (0.1-0.6); Absolute Neutrophils 6.8 10^3/uL (1.4-6.5); Hematocrit 37.7 % (39.0-52.0); Hemoglobin 13.1 g/dL (13.0-18.0); Mean Corp Hgb Conc. 34.7 g/dL (33.0-37.0); Mean Corpuscular Hgb 31.6 pg (27.0-31.0); Mean Corpuscular Volume 91.1 fL (80.0-94.0); Mean Platelet Volume 9.7 fL (7.4-10.4); Nucleated Red Blood Cells % 0 % (-); Platelet Count 202 10^3/uL (130-400); Red Blood Cell Count 4.14 10^6/uL (4.70-6.10); Red Cell Dist. Width 12.1 % (11.5-14.5); White Blood Cell Count 8.8 10^3/uL (4.8-10.8)
[2024-08-09 06:37] LABS: Blood Urea Nitrogen 25 mg/dl (9-20); Calcium 9.1 mg/dl (8.4-10.2); Carbon Dioxide 19 mmol/L (22-30); Chloride 106 mmol/L (98-107); Estimated Creatinine Clearance 55 ml/min; Glucose 108 mg/dl (70-99); Potassium 4.4 mmol/L (3.5-5.1); Sodium 138 mmol/L (135-145); eGFR > 60.00
[2024-08-09 07:10] VITALS: BP 173/121
[2024-08-09] MEDS: B COMPLEX w/VITAMIN C 1 CAPLET PO (07:57)
[2024-08-09] MEDS: TOPROL XL 25 MG PO (07:58)
[2024-08-09] MEDS: NORVASC 5 MG PO (07:59)
[2024-08-09] MEDS: VITAMIN D3 (cholecalciferol) 50 MCG PO (08:00)
[2024-08-09] MEDS: NIASPAN TIME RELEASE 1000 MG PO (09:44)
--- NOTE | 2024-08-09 11:13 | W.DS.TRANS ---
DC Summary - [facility]
-
Discharge Instructions:
Sleep Apnea Risk Intermediate
Discharge Diagnosis/Procedures BPH and bladder s/p TURP and cystolitholapaxy
Diet No restrictions
Activity No strenuous activity
Additional Activity No strenuous activity, exercise, or heavy
lifting (>20 lbs) for [address] Adler
Driving Restrictions No driving for 24 hours
Bathing Restrictions None
Blood Work not applicable
Wound Care not applicable
Instructions:
Stand-Alone Forms:
Changes to Home Medications: No
Discharge Medications:
DC Medications w/original date entered in [facility]
metoprolol succinate 25 mg tablet,extended release 24 hr 25 mg PO DAILY Cardiac issues #30 tabs 09/24/23
amlodipine 5 mg tablet 5 mg PO DAILY Blood Pressure 04/21/24
latanoprost 0.005 % eye drops 1 drp BOTH EYES HS Eye Condition 04/21/24
Vitamin D3 1 cap PO DAILY 08/05/24
biubtczwxdc-gjg-ddkzpopso-vitC capsule (Glucosamine Complex-MSM capsule) 1 cap PO DAILY 08/05/24
melatonin 10 mg tablet 10 mg PO HS PRN sleep 08/05/24
miconazole nitrate 2 % topical powder (Desenex) 1 applic topical PRN PRN rash in groin area and inner rash. 08/05/24
niacin 500 mg tablet 1,000 mg PO DAILY 08/05/24
omega 1-uav-feo-fish oil 1,200 mg (144 mg-216 mg) capsule (Fish Oil) 1 cap PO DAILY 08/05/24
tamsulosin 0.4 mg capsule 0.4 mg PO HS 08/05/24
taurine 1,000 mg capsule 1,000 mg PO DAILY 08/05/24
vitamin B complex 1 cap PO DAILY 08/05/24
vitamin K2 100 mcg capsule 100 mcg PO DAILY 08/05/24
amoxicillin 500 mg-potassium clavulanate 125 mg tablet (Augmentin) 1 tab PO BID 5 days #10 tabs 08/09/24
phenazopyridine 200 mg tablet (Pyridium) 200 mg PO BID PRN dysuria 4 days #8 tabs 08/09/24
Home Medication Changes
Pending Results: Yes (surgical pathology )
Total time spent discharging patient (in min): 45
--- NOTE | 2024-08-09 12:07 | CM ---
Patient seen at bedside. Patient states his will transport him home. Patient lives with in a 2 story town home. Patient has been in the past to [facility] but does not need SNF at this time. Patient to pick patient up later today and
Patient PCP is Dr. Ashby. CM spoke with nursing and no VN needs anticipated. CM will continue to follow for discharge planning needs.
Plan; home with no needs
[2024-08-09] MEDS: PREVNAR 20 0.5 ML IM (13:20)
[2024-08-09 15:11] VITALS: BP 105/67
== END 2024-08-09 16:23 | disposition home or self-care (01) ==
LOC: SDS 07:47
PROVIDERS: ATTENDING PHYSICIAN Surgery; FAMILY PHYSICIAN Family Medicine
DX: N21.0 Calculus in bladder (principal); N32.0 Bladder-neck obstruction; N40.0 Benign prostatic hyperplasia without lower urinary tract symptoms
CPT/HCPCS: 52601; 52318; 88305; 80048; 85025; 90677; G0009

== ENCOUNTER → 2024-11-03 12:17 | Outpatient (REF) | payer MEDICARE, SELFPAY | LOC: HWLAB 12:17 | PROVIDERS: ATTENDING PHYSICIAN Specialist; FAMILY PHYSICIAN Family Medicine | DX: G30.1 Alzheimer's disease with late onset (principal) | CPT/HCPCS: 36415 ==